=== PATIENT | male | born 1965 | race Caucasian/White ===

== ENCOUNTER 2025-08-11 00:13 | Inpatient (IN) | payer OTHER, SELFPAY ==
[2025-08-10 19:53] VITALS: BP 186/136
[2025-08-10 19:56] LABS: Glucose - Point of Care 250 mg/dl (70-99)
[2025-08-10 20:13] LABS: Venous Blood Gas B.E. 1.0 mmol/L (-4 to +4); Venous Blood Gas O2 Sat % 98.3 %
[2025-08-10 20:17] LABS: Hematocrit 47.3 % (39.0-52.0); Hemoglobin 17.1 g/dL (13.0-18.0); Mean Corp Hgb Conc. 36.2 g/dL (33.0-37.0); Mean Corpuscular Volume 86.8 fL (80.0-94.0); Nucleated Red Blood Cells % 0 % (-); Platelet Count 247 10^3/uL (130-400); Red Cell Dist. Width 11.9 % (11.5-14.5)
[2025-08-10 20:27] VITALS: BP 204/106
[2025-08-10 20:28] VITALS: BMI 37.9
[2025-08-10 20:39] LABS: Troponin I 0.026 ng/ml
--- NOTE | 2025-08-10 20:39 | ED.GENMED ---
History of Present Illness
<Trice Zavala PA-C - Last Filed: 08/11/25 00:13>
General
Chief Complaint: Dizziness
Source: patient
Exam Limitations: none
Time Seen by Provider: 08/10/25 20:14
History of Present Illness
History of Present Illness:
60yoM with a history of hypertension, hyperlipidemia, and type 2 diabetes presenting for evaluation of right sided uncoordination. Patient woke up this morning around 7:30 AM and noticed some dizziness which he describes as feeling woozy. He
denies any vertiginous symptoms. He was able to go on a walk and was feeling okay. When he returned from his walk, he sat down around 10:30 AM and noticed that his right leg seemed weak. It feels like he is having a hard time lifting the leg and
he feels like he is going to fall. He was also having some issues holding a cup with his right arm earlier. He has baseline neuropathy in his legs. He denies any headaches. His vision has been 'off' for the past few weeks. He lost his health
insurance about 1.5 years ago and has been off his blood pressure and diabetic medications since then.
Past History
<Trice Zavala PA-C - Last Filed: 08/11/25 00:13>
Past History
ED Past Medical History: Hypercholesterolemia and Other (Hypertension, recent umbilical hernia repair)
ED Past Surgical History: Other (removal of sweat glands l arm in early 20's)
Social History
Tobacco: Non-smoker
Personal:
Living: with family
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
Family History
Family History: Other (Hypertension, colon cancer)
Phy Exam
<Trice Zavala PA-C - Last Filed: 08/11/25 00:13>
General Physical Exam
General Presentation: well appearing and no apparent distress
General Skin: warm and dry
General Habitus: normal
General Mental: alert
ENT Exam
ENT Exam: normocephalic
Eye Exam
Eye Exam: PERRL, EOMI, conjunctiva normal and visual kay normal
Cardiovascular Exam
Cardiovascular Exam: regular rate/rhythm
Pulmonary Exam
Pulmonary Exam: lungs clear, no respiratory distress, no rales, no crackles, no rhonchi and no wheezing
Neurological Exam
Neurological Exam: alert, speech normal and other (Mild drift in RUE/RLE. Mild dysmetria noted with R finger to nose and heel to martinez. CN 2-12 intact. )
[place] Coma Scale
Eye Opening: Spontaneous
Verbal Response: Oriented
Motor Response: Obeys Commands
GCS Total Score: 15
Skin Exam
Skin Exam: normal color and warm/dry
Psychiatric Exam
Psychiatric Exam: normal mood/affect
<Davonte Martin DO - Last Filed: 08/10/25 22:17>
[place] Coma Scale
GCS Total Score: 15
Scores
<Trice Zavala PA-C - Last Filed: 08/11/25 00:13>
NIH Stroke Score
Level of Consciousness: 0 - Alert
LOC Questions: 0-Answers both correctly
LOC Commands: 0-Performs both correctly
Best Horizontal Gaze: 0-Normal
Visual Kay: 0=Normal, no visual loss
Facial Palsy: 0=Normal, symmetrical
Motor - Right Arm: 0=No drift 10 seconds
Motor - Left Arm: 0=No drift 10 seconds
Motor - Right Le-No drift 5 seconds
Motor - Left Le-No drift 5 seconds
Limb Ataxia: 2-Present in two limbs
Sensation: 0-Normal
Best Language: 0-No aphasia
Dysarthria: 0-Normal
Extinction and Inattention: 0-No abnormality
NIH Total Score:: 2
<Davonte Martin DO - Last Filed: 08/10/25 22:17>
NIH Stroke Score
NIH Total Score:: 2
Course
<Trice Zavala PA-C - Last Filed: 08/11/25 00:13>
Orders/Labs/Results
Orders:
Orders
08/10/25 19:56
Electrocardiogram (*1) Urgent
Reason for Study: Vertigo / Dizzy
08/10/25 19:57
EKG- Treatment ONCE
08/10/25 20:04
B-Hydroxybutyrate Urgent
Complete Blood Count/With Diff Urgent
Comprehensive Metabolic Panel Urgent
Lactic Acid Urgent
Troponin I Urgent
Venous Blood Gas Urgent
%Oxygen/Room Air: room air
08/10/25 21:23
CT Head & Neck Angio W/wo IV Urgent
Comment:
Reason For Exam: R sided weakness, dizziness
08/10/25 22:15
Labetalol HCl [Trandate] 20 mg IV NOW STA
08/10/25 23:20
Aspirin Chewable [Low Strength Aspirin] 324 mg PO NOW STA
08/11/25 00:02
Admit/Transfer Patient As Directed
Co-Sign Provider:
Level of Care: Inpatient admission
Assign to:: ICU
Physician / Group: Cecilia
Diagnosis: Hypertensive emergency
Reason for Hospitalization: hypertensive emergency, TIA/CVA
Expected length of stay greater than two midnights?: Yes
ELOS- Estimated Length of Stay in days: 2
I certify the patient meets the requirements for IP care: Yes
08/11/25 00:03
Code Status As Directed
Resuscitation Status: Full Code
08/11/25 00:15
Nicardipine 40 mg/200 ml [Cardene] 40 mg in 200 ml IV PER PROTOCOL
Initial dose in mg/hr, then titrate:: 2.5
Titrate to keep:: BP < 180/105 mmHg
Titrate by mg/hr:: 2.5 mg/hr
Frequency of titrations (minutes):: 5-15 minutes
Maximum dose in mg/hr:: 15
Begin to taper infusion when:: Remained at goal for 2hrs
Taper by mg/hr:: 2.5 mg/hr
Frequency of taper (minutes) if patient maintains goal:: every 15-30 minutes
Taper to off?: Yes
If infusion off & no longer maintaining goal:: Contact Provider
Abnormal Lab Results
08/10/25 08/10/25
19:54 20:04
MCH 31.4 H pg
(27.0-31.0)
VBG pO2 92 H mmHg
(30-50)
BUN 22 H mg/dl
(9-20)
Creatinine 1.4 H mg/dL
(0.7-1.3)
Glucose 244 H mg/dl
(70-99)
POC Glucose 250 H mg/dl
(70-99)
08/10/25 20:04
08/10/25 20:04
Vital Signs
Initial and Last Documented VS:
Initial Vital Signs
Temp Pulse Resp BP Pulse Ox
98.0 F 115 20 186/136 97
08/10/25 19:53 08/10/25 19:53 08/10/25 19:53 08/10/25 19:53 08/10/25 19:53
Last Documented Vital Signs
Temp Pulse Resp BP Pulse Ox
98.0 F 91 13 233/135 94
08/10/25 21:04 08/10/25 23:45 08/10/25 23:45 08/10/25 23:00 08/10/25 23:30
<Davonte Martin, DO - Last Filed: 08/10/25 22:17>
Orders/Labs/Results
Orders:
Orders
08/10/25 19:56
Electrocardiogram (*1) Urgent
Reason for Study: Vertigo / Dizzy
08/10/25 19:57
EKG- Treatment ONCE
08/10/25 20:04
B-Hydroxybutyrate Urgent
Complete Blood Count/With Diff Urgent
Comprehensive Metabolic Panel Urgent
Lactic Acid Urgent
Troponin I Urgent
Venous Blood Gas Urgent
%Oxygen/Room Air: room air
08/10/25 21:23
CT Head & Neck Angio W/wo IV Urgent
Comment:
Reason For Exam: R sided weakness, dizziness
08/10/25 22:15
Labetalol HCl [Trandate] 20 mg IV NOW STA
08/10/25 23:20
Aspirin Chewable [Low Strength Aspirin] 324 mg PO NOW STA
08/11/25 00:02
Admit/Transfer Patient As Directed
Co-Sign Provider:
Level of Care: Inpatient admission
Assign to:: ICU
Physician / Group: Cecilia
Diagnosis: Hypertensive emergency
Reason for Hospitalization: hypertensive emergency, TIA/CVA
Expected length of stay greater than two midnights?: Yes
ELOS- Estimated Length of Stay in days: 2
I certify the patient meets the requirements for IP care: Yes
08/11/25 00:03
Code Status As Directed
Resuscitation Status: Full Code
08/11/25 00:15
Nicardipine 40 mg/200 ml [Cardene] 40 mg in 200 ml IV PER PROTOCOL
Initial dose in mg/hr, then titrate:: 2.5
Titrate to keep:: BP < 180/105 mmHg
Titrate by mg/hr:: 2.5 mg/hr
Frequency of titrations (minutes):: 5-15 minutes
Maximum dose in mg/hr:: 15
Begin to taper infusion when:: Remained at goal for 2hrs
Taper by mg/hr:: 2.5 mg/hr
Frequency of taper (minutes) if patient maintains goal:: every 15-30 minutes
Taper to off?: Yes
If infusion off & no longer maintaining goal:: Contact Provider
Abnormal Lab Results
08/10/25 08/10/25
19:54 20:04
MCH 31.4 H pg
(27.0-31.0)
VBG pO2 92 H mmHg
(30-50)
BUN 22 H mg/dl
(9-20)
Creatinine 1.4 H mg/dL
(0.7-1.3)
Glucose 244 H mg/dl
(70-99)
POC Glucose 250 H mg/dl
(70-99)
08/10/25 20:04
08/10/25 20:04
Vital Signs
Initial and Last Documented VS:
Initial Vital Signs
Temp Pulse Resp BP Pulse Ox
98.0 F 115 20 186/136 97
08/10/25 19:53 08/10/25 19:53 08/10/25 19:53 08/10/25 19:53 08/10/25 19:53
Last Documented Vital Signs
Temp Pulse Resp BP Pulse Ox
98.0 F 91 13 233/135 94
08/10/25 21:04 08/10/25 23:45 08/10/25 23:45 08/10/25 23:00 08/10/25 23:30
Maribellt;Trice Zavala PA-C - Last Filed: 08/11/25 00:13>
MDM/Problems Addressed
Differential Diagnosis Includes:
60yoM presenting for dizziness and R sided incoordination/weakness that began this morning. Has been off all meds for >1.5 years including antihypertensives and diabetic meds. BP 186/136 on arrival. He is awake and alert on exam. He denies any
headaches. There is mild dysmetria and drift noted in the right upper and lower extremities. Differential diagnosis includes but is not limited to: CVA, TIA, hypertensive emergency, radiculopathy, peripheral neuropathy
Initial ED plan: Lab work initiated in triage. EKG shows normal sinus rhythm with nonspecific T wave changes. Will check CTA head/neck. Patient is out of the window for TNK.
<Trice Zavala PA-C - Last Filed: 08/11/25 00:13>
*Pulse Oximetry
SaO2: 96
Oxygen Mode of Delivery: Room air
Patient hypoxic: no
*EKG
Interpreted by ED Provider?: Yes
EKG Intrepretation Date: 08/10/25
Heart Rate: 95
Rate: normal
Rhythm: sinus
[place]: normal axis
Interval: normal interval
QRS Pattern: normal QRS
Ischemia: T-wave inversion (lateral leads)
<Davonte Martin DO - Last Filed: 08/10/25 22:17>
*Critical Care Note
Total Time (30-74mins, 75-104mins- exclusive of procedures): 32
comment:
Critical care statement: A total of 32 minutes of critical care time was provided for this patient. This includes management of unstable vital signs, evaluation of the patient at bedside, reviewing the patient's pertinent medical records, discussion
with consultants, review of old EKGs and review of pertinent medical records. This time with separate from time utilized to perform the aforementioned documented procedures
<Trice Zavala PA-C - Last Filed: 08/11/25 00:13>
Update Note
Update Note:
Labs reveal a creatinine of 1.4 up from 0.[address] is negative for hemorrhage and large vessel occlusion. There is a small focus adjacent to the left lateral ventricle which is possibly an age-indeterminate lacunar infarct. Aspirin ordered.
Again, patient is out of the window for TNK. He did receive a dose of 20 mg IV hydralazine for uncontrolled blood pressure. Patient admitted for further management.
ED Attending Note
<Trice Zavala PA-C - Last Filed: 08/11/25 00:13>
-
Portions of this chart may have been created with voice recognition software.� Occasional wrong word or��sound alike� substitutions may have occurred due to the inherent limitations of voice recognition software.
<Davonte Martin DO - Last Filed: 08/10/25 22:17>
ED Attending Note
Patient seen and examined by attending physician: Yes
ED Attending Note:
I have reviewed and agree with history plan by Trice Zavala PA-C. My exam revealed
Physical Exam
General: Hypertensive 230/140
Neck: supple. no meningeal signs. normal posterior pharynx
Heart: s1/s2 regular rate and rhythm, no murmur. equal radial
pulses.
HEENT: Pupils equal round reactive to light, EOMI
Lungs: no acute respiratory distress. clear bilaterally
Abdomen: normal bowel sounds. not tender. no CVAT
Neuro: alert and oriented. no focal neurological deficits cranial nerves II through XII intact slight drift in right leg and right arm
Skin: no rash
Psychiatric: well kept. interactive and cooperative
Extremities: no edema. no calf tenderness. negative homans. good distal pulses
IV labetalol ordered. Patient out of window for TNK. Await CT angiography results.. Admit to hospital
Discharge Plan
Departure
Patient Disposition: Admit
Date of Disposition: 08/10/25
Time of Disposition: 23:26
Presentation/result/management discussed w/ accepting MD/DO: Hospitalist
Discharge Problem:
Stroke-like symptoms
Prescriptions:
No Action
loratadine 10 MG tablet
10 mg PO DAILY
omeprazole magnesium [Prilosec OTC] 20 MG tablet,delayed release (DR/EC)
20 mg PO DAILY
fluconazole 150 MG tablet
150 mg PO DAILY Qty: 5 0RF
metformin 500 MG tablet extended release 24 hr
500 mg PO DAILY Qty: 14 1RF
hydrocodone-acetaminophen [Vicodin] 1 EACH tablet
1 ea PO Q6HPRN PRN (Reason: pain) Qty: 7 0RF
hydrocodone-acetaminophen 1 TABLET tablet
1 tab PO Q4HPRN PRN (Reason: severe pain) Qty: 8 0RF
penicillin V potassium 500 MG tablet
500 mg PO Q6 Qty: 39 0RF
penicillin V potassium 500 MG tablet
500 mg PO Q6 Qty: 28 0RF
hydrocodone-acetaminophen [Vicodin] 1 EACH tablet
1 ea PO Q4HPRN PRN (Reason: pain) Qty: 10 0RF
Referrals:
Rachel Solitario PA-C [Family Provider, Internal Medicine]
Interventions
Interventions:
*General Assessment Last Done: 08/10/25 19:53
*ED- Fall Risk Assessment Last Done: 08/10/25 20:47
*ED COVID-19 Vaccine History Last Done: 08/10/25 20:48
*ED Influenza Vaccine History Last Done: 08/10/25 20:48
ED- Neurological Assessment Last Done: 08/10/25 20:54
ED Swallowing Screen Last Done: 08/10/25 20:53
Discharge Date and Time
Print Language: SERBIAN
[2025-08-10 20:46] VITALS: BP 230/131
[2025-08-10 20:49] LABS: ALT (SGPT) 39 U/L (0-50); AST (SGOT) 40 U/L (17-59); Albumin 4.4 g/dl (3.5-5.0); Alkaline Phosphatase 73 U/L (38-126); Blood Urea Nitrogen 22 mg/dl (9-20); Calcium 9.4 mg/dl (8.4-10.2); Carbon Dioxide 25 mmol/L (22-30); Chloride 104 mmol/L (98-107); Estimated Creatinine Clearance 79 ml/min; Glucose 244 mg/dl (70-99); Potassium 4.5 mmol/L (3.5-5.1); Sodium 137 mmol/L (135-145); Total Protein 8.2 g/dl (6.3-8.2); eGFR 57.54
[2025-08-10 21:00] VITALS: BP 201/120
[2025-08-10 22:05] VITALS: BP 230/140
[2025-08-10] MEDS: TRANDATE 20 MG IV (22:18)
[2025-08-10 23:00] VITALS: BP 233/135
--- NOTE | 2025-08-10 23:34 | HPS.HSE ---
Family Physician
-
Family Physician: Rachel Solitario PA-C
Chief Complaint
-
Dizziness
History of Present Illness
This is a 60-year-old male with past medical history significant for whm-vxjrqiv-hznlpnyua diabetes, hypertension, hyperlipidemia, obesity we will reports that he has been off his medication for about a year presents to the emergency department with
onset of dizziness that started this a.m.
Patient reported that he thinks he was in digestive health when he went to bed last night. When he awoke this morning he tried to get is for the family out of the house and he noticed that he had some difficulty walking. He felt like he is right
lower extremity was clunky. He was misjudging placement of his leg he was also starting placement of his right hand and sometimes had difficulty grabbing or reaching for objects. He reports that he has had some blurry vision in the recent past and
he needed to have his eyes checked but this feels different from that. He reported that after day progressed his symptoms appear to get worse and then they have stabilized now with difficulty placing the right leg correctly and subsequent ataxia.
He also reports some mild perioral paresthesias. He denies any other focal deficits. Denies any headache nausea vomiting diarrhea or palpitations or chest pain.
Patient reported that his blood pressure has been running high at home in the 200s over 100. He has not taken his blood pressure medications for over 1 year whereas he was previously on lisinopril and hydrochlorothiazide. He also reports that he
has not been taking his antidiabetic or antilipid medications due to lack of insurance. He states he is now able to get them.
He denies any urinary symptoms.
In the emergency department he was afebrile, blood pressure was 230/140 with a pulse rate of 93 and was satting 98% on room air. ECG showed sinus rhythm at a rate of 95 with T wave inversions in the lateral leads. CT of the head and CT angio shows
no acute acute intracranial hemorrhage. Small localized focus of subtle diminished attenuation within the periventricular white matter adjacent to the posterior body left lateral ventricle. Possible mild chronic ischemic change versus age
indeterminant white matter lacunar infarct. Recommend follow-up MRI. CTA shows no large vessel occlusion dissection or aneurysm.
Medical History
Past Medical History
Past Medical History: Reports GERD, HTN, Hypercholesterolemia and NIDDM
Past Surgical History: Reports Orthopedic (Right upper extremity tendon repair) and Other (Umbilical hernia repair)
Social History
Tobacco: Non-smoker
Alcohol: Occasional
Drug: None
Living: With Family
Family History
Family History: Not pertinent
Allergies / Home Medications
Allergies reflects when Allergies were last updated in [facility].
Home Medications with original date entered in [facility]
Allergy/Medication List:
Allergies
Allergy/AdvReac Type Severity Reaction Status Date / Time
No Known Allergies Allergy Verified 08/10/25 19:52
Home Medications
hydrocodone 5 mg-acetaminophen 300 mg tablet (Vicodin) 1 ea PO Q4HPRN PRN pain #10 tabs 11/06/18
penicillin V potassium 500 mg tablet 500 mg PO Q6 #28 tabs 11/06/18
Review of Systems
-
Constitutional: Reports No Symptoms
EENT: Reports No Symptoms
Respiratory: Reports No Symptoms
Cardiac: Reports No Symptoms
Abdomen/GI: Reports No Symptoms
: Reports No Symptoms
Musculoskeletal: Reports No Symptoms
Skin: Reports No Symptoms
Neurological: Reports Dizzy and Weakness
Endocrine: Reports No Symptoms
Hematologic/Lymphatic: Reports No Symptoms
Psych: Reports No Symptoms
Physical Exam
Vital Signs
Vital Signs
Temp Pulse Resp BP Pulse Ox
98.0 F 93 19 230/140 97
08/10/25 21:04 08/10/25 22:18 08/10/25 22:05 08/10/25 22:18 08/10/25 22:05
Physical Exam
General: Well Developed, Well Nourished and No Apparent Distress
HEENT: NormoCephalic, Moist mucous membranes and Atraumatic
Respiratory: Clear
Cardiac: S1/S2 and Regular Rhythm; No Murmur or Rub
GI: Soft, Non Tender, Non Distended and Normal Bowel Sounds; No Organomegaly
Rectal: Deferred by Provider
Musculoskeletal: No Clubbing, No Cyanosis and No Edema
Skin: No Rash
Neuro: AO x 3, Nonfocal/grossly intact (subtle weakness of the dorsiflexion on the right foot), Cranial Nerves Intact and No Sensory Deficits; No Slurred Speech, Facial Droop or Tremors
Laboratory Results
-
08/10/25 20:04
08/10/25 20:04
Laboratory Results
Lactic Acid 1.1 mmol/L (0.7-2.0) 08/10/25 20:04
Total Bilirubin 0.9 mg/dl (0.2-1.3) 08/10/25 20:04
AST 40 U/L (17-59) 08/10/25 20:04
ALT 39 U/L (0-50) 08/10/25 20:04
Alkaline Phosphatase 73 U/L (38-126) 08/10/25 20:04
Troponin I 0.026 ng/ml 08/10/25 20:04
Data Reviewed
-
CT Scan: Report Reviewed by me
Medical Tests (Nuc Med, Echo, EKG etc): Image Personally Visualized and interpreted
Lab Data: Labs Reviewed by me
Old Records: Reviewed
Impression/Plan
-
IMPRESSION:
This is a 60-year-old with uncontrolled hypertension secondary to noncompliance with medications, hyperlipidemia, [id number]-hdazihnsp diabetes not currently on medical management presenting with acute onset of ataxia and subtle weakness of the
right lower extremity. Ataxia appears to be related to the right side as well. Suspect possible cerebellar infarct however CT scan seems to show possible age-indeterminate lacunar infarct on the left. He has uncontrolled blood pressure today 230s
over 130s in the ED.
PLAN:
Hypertensive emergency -patient with hypertensive emergency given elevated blood pressure with endorgan changes.
-Admit to ICU
-Will start on nicardipine drip, initial goal blood pressure of no less than 180 systolic, 90 diastolic
-Restart lisinopril/hctz in am
- Monitor neurovascular status
TIA CVA -possible hypertensive emergency etiology versus new stroke. Patient is out of window for TNK
-Neurochecks every 6 hours
-Speech and swallow eval
-Check lipid panel and A1c
-Statin low-dose statin
-Start aspirin 81 mg daily for now
-MRI in a.m.
-Neurology consult
Diabetes -previously on Trulicity and oral agent which patient is unable to recall
-Sliding scale insulin for now
-Glipizide twice daily
-Consider addition of linagliptin
-A1c as above
DVT progresses�SCDs for now
CODE STATUS�full code
[2025-08-10] MEDS: LOW STRENGTH ASPIRIN 324 MG PO (23:52)
[2025-08-11] VITALS (67 sets, daily range): BP systolic 127–254; BP diastolic 77–167; PULSE 125; BMI 36.7
[2025-08-11] MEDS: CARDENE 200 IV ×3 (00:21→16:45)
--- NOTE | 2025-08-11 01:30 | PTCARENOTE ---
Patient received from ED, AAOX3, NIH 3, ataxia noted in right arm and right leg, decreased sensation on right side of face. NSR on monitor, blood pressure as documented. Cardene gtt at 7.5 mg/hr, overall patient 'does not feel good', no edema.
Lungs clear, pulse ox 97% on room air. Abdomen obese with hypoactive bowel sounds. #18 g in LAC with Cardene gtt infusing as ordered
[2025-08-11 02:05] LABS: Glucose - Point of Care 227 mg/dl (70-99)
[2025-08-11] MEDS: NOVOLOG FLEXPEN 3 UNITS SC (03:41)
--- NOTE | 2025-08-11 04:30 | PTCARENOTE ---
Patient complaining of being 'hot', not feeling well, blood pressure 160s/80s, Cardene gtt decreased. No other changes in assessment
[2025-08-11 04:56] LABS: Hematocrit 44.7 % (39.0-52.0); Hemoglobin 16.1 g/dL (13.0-18.0); Mean Corp Hgb Conc. 36.0 g/dL (33.0-37.0); Mean Corpuscular Volume 88.9 fL (80.0-94.0); Platelet Count 233 10^3/uL (130-400); Red Cell Dist. Width 11.9 % (11.5-14.5)
[2025-08-11 05:03] LABS: INR 1.03; PT 13.8 Sec (11.4-14.6)
[2025-08-11 05:04] LABS: APTT 25.7 Sec (23.4-35.0)
[2025-08-11 05:17] LABS: Blood Urea Nitrogen 25 mg/dl (9-20); Calcium 9.3 mg/dl (8.4-10.2); Carbon Dioxide 23 mmol/L (22-30); Chloride 104 mmol/L (98-107); Estimated Creatinine Clearance 74 ml/min; Glucose 301 mg/dl (70-99); HDL Cholesterol 29 mg/dl; Magnesium 1.5 mg/dl (1.6-2.3); Potassium 4.5 mmol/L (3.5-5.1); Sodium 137 mmol/L (135-145); eGFR 52.97
[2025-08-11 06:00] LABS: LDL Cholesterol, Direct < 30 mg/dl
[2025-08-11 06:05] LABS: Hepatitis C Antibody Negative (Negative)
[2025-08-11] MEDS: MAGNESIUM SULFATE 50 IV ×2 (06:08→10:09)
--- NOTE | 2025-08-11 07:12 | CON.INTV ---
Consultation
Consultation Request
Date/Time Consultation Requested: 08/11/2025
Date/Time Consultation Performed: 08/11/2025
Medical History
-
Chief Complaint: Weakness
History of Present Illness:
Patient is a 60-year-old gentleman with history of hypertension, hyperlipidemia, diabetes and obesity who reportedly stopped taking his medication since about a year and presented to emergency room with rapid onset of dizziness. Patient felt as if
his coordination was off and symptoms are suggestive of ataxia. Patient also reported perioral paresthesias. No reported nausea, headache or vomiting. Reportedly known history of high blood pressure with systolic running above 200 and has been
off medication for close to a year. In the emergency room patient's blood pressure was severely elevated at 230 x 140. He was saturating well on room air. CT angio of the head was not suggestive of any acute intracranial hemorrhage or an acute
stroke. There was suggestion of possible old stroke on the CT scan. Patient was not felt to be a candidate for TNK since he was out of window in terms of time since onset of his symptoms. In view of hypertensive emergency he was started on
nicardipine drip and was admitted to the ICU. Director Of Recruiting consultation was requested for further input.
Past Medical History
Past Medical History: Reports GERD, HTN, Hypercholesterolemia and NIDDM
Past Surgical History: Reports Orthopedic (Right upper extremity tendon repair) and Other (Umbilical hernia repair)
Social History
Tobacco: Non-smoker
Alcohol: Occasional
Drug: None
Living: With Family
Family History
Family History: Not pertinent
Allergies / Home Medications
Allergies / Home Medications
Allergies
Allergy/AdvReac Type Severity Reaction Status Date / Time
No Known Allergies Allergy Verified 08/10/25 19:52
Home Medications
�Medication �Instructions �Recorded �Confirmed �Last Taken �Type
loratadine 10 mg tablet 10 mg PO DAILY 08/13/09 03/09/16 03/09/16 History
omeprazole magnesium 20 mg 20 mg PO DAILY 08/13/09 03/09/16 03/09/16 History
tablet,delayed release (Prilosec
OTC)
fluconazole 150 mg tablet 150 mg PO DAILY #5 tabs 03/09/16 Unknown Rx
hydrocodone 5 mg-acetaminophen 300 1 ea PO Q6HPRN PRN pain #7 tabs 03/09/16 Unknown Rx
mg tablet (Vicodin)
metformin 500 mg tablet,extended 500 mg PO DAILY #14 tabs 03/09/16 Unknown Rx
release 24 hr
hydrocodone 5 mg-acetaminophen 325 1 tab PO Q4HPRN PRN severe pain #8 07/27/17 Unknown Rx
mg tablet tabs
penicillin V potassium 500 mg 500 mg PO Q6 #39 tabs 07/27/17 Unknown Rx
tablet
hydrocodone 5 mg-acetaminophen 300 1 ea PO Q4HPRN PRN pain #10 tabs 11/06/18 Unknown Rx
mg tablet (Vicodin)
penicillin V potassium 500 mg 500 mg PO Q6 #28 tabs 11/06/18 Unknown Rx
tablet
Review of Systems
-
Hematologic/Lymphatic: Other (All 14 systems reviewed and negative except as stated above in the history of present illness.)
Vitals / Labs / Diagnostic Testing
Vital Signs
Temp Pulse Resp BP Pulse Ox
97.8 F 90 15 145/87 97
08/11/25 01:56 08/11/25 06:45 08/11/25 06:45 08/11/25 06:45 08/11/25 02:10
Lab Data
08/11/25 04:40
08/11/25 04:40
Laboratory Results
08/11/25
04:40
PT 13.8
INR 1.03
APTT 25.7
Diagnostic Testing:
Physical Exam
-
HEENT: Normocephalic
Cardiovascular: S1/S2
Respiratory: Clear
GI: Soft and Non Distended
Neurology: Awake, Alert and Oriented
Skin: Warm
General: Comfortable
Assessment
-
#1. Hypertensive emergency
- Severely elevated blood pressure with strokelike symptoms
- Continue monitoring in ICU, patient was started on nicardipine drip
- Initial blood pressure was 230 systolic, considering concern for stroke will not start to get lowering below 180 at least the first 24 hours. Also patient chronically hypertensive with blood pressures running around 200 systolic at home
#2. Weakness/Ataxia with concern for acute stroke.
- CTA without evidence of acute bleed
- Continue neurochecks, patient not candidate of TNK due to being out of time window since onset of symptoms
- Await MRI for further evaluation
- Neurology service on case
#3. DM
- Elevated triglycerides noted
- Start Lantus 15 units nightly and Aspart 5 units tid-ac, SSI in addition
Other medical diagnoses:
- Mediastinal Lymphadenopathy and pulmonary nodules. needs dedicated CT Chest for further evaluation, also outpatient Pulmonary follow up. Information added to discharge section and patient counselled regarding need for follow up. CT chest in AM.
- HLD. Statins initiated.
DVT prophylaxis. Initiate heparin subcu, 5000 units every 8 hours.
Critical Care time 62 mins -- The patient is admitted for acute critical illness for the treatment of vital organ failure and/or prevention of further life-threatening conditions. Total care includes time spent in review of history, physical exam,
medications, hemodynamic/ventilator parameters, laboratory data, imaging and discussion with house staff, pharmacy, respiratory therapy, swing tender, and nursing.
Data:
CTA Head/Neck 07/2025: No acute intracranial hemorrhage.
Small localized focus of subtle diminished attenuation within the periventricular white matter adjacent to the posterior body left lateral ventricle. Possible mild chronic ischemic change versus age indeterminant white matter lacunar infarct.
Recommend follow-up MRI.
Cervical and intracranial major regional vasculature appears patent without evidence for hemodynamically significant stenosis or occlusion. Normal variant hypoplasia of the left anterior cerebral artery A1 segment.
No [place] of [place] region aneurysm or stenosis.
Incidental superior mediastinal adenopathy; possibly infectious, inflammatory, or neoplasm, such as lymphoma. There are small patchy nodular opacities in the left lung apex measuring up to 6.5 mm. Initial step for further evaluation recommended with
follow-up nonemergent chest CT
[2025-08-11] MEDS: NOVOLOG FLEXPEN-MODERATE RESISTANCE 7 UNITS SC ×2 (07:49→12:19)
[2025-08-11] MEDS: GLUCOTROL 2.5 MG PO (07:50)
[2025-08-11] MEDS: MIRALAX 17 GRAMS PO (07:50)
[2025-08-11] MEDS: LOW STRENGTH ASPIRIN 81 MG PO (07:51)
[2025-08-11 08:00] LABS: Glucose - Point of Care 311 mg/dl (70-99)
--- NOTE | 2025-08-11 08:40 | CON.NEURO ---
Addendum entered and electronically signed by Kaleb Galindo MD 08/11/25 11:27:
Studies reviewed.
I have personally examined the patient. I reviewed and agree with the CONTENT ANALYST's Note.
My addenda:
Awake, alert, interactive. No acute distress.
Speech intact.
Follows 2-step requests w/o difficulty. No tremor.
Extra-ocular movements grossly intact.
Facial movements full and symmetric. Hearing intact to normal conversational volume.
Normal UE movements with exception of ataxic movements in the right upper and lower extremities of moderate to severe amplitude.
Neck: full ROM.
Chest: no dyspnea
Heart: no JVD
Ext: (-) Clubbing, (-) Cyanosis, (-) Edema
IMPRESSIONS/RECOMMENDATIONS:
Abrupt onset of right hemibody ataxia
Most likely secondary to acute ischemic stroke as suggested by the left centrum semiovale hypodense lesion demonstrated on CAT scan of the head
Provide aspirin and clopidogrel for total 21 days then aspirin alone
Provide cholesterol-lowering agent
Rehabilitation evaluation and treatment
Goal of near normotension in the first 24 hours then normotension
Eventual follow-up of left apical lung lesion
D/W patient / nursing
All questions answered.
Will continue to follow patient.
Original Note:
Documented by User: Christen Joe NP 08/11/25 10:26
Neuro Assessment/Plan
Assessment
This is a 60-year-old male with past medical history significant for tqm-zmdzkdd-pilfsxwem diabetes, hypertension, hyperlipidemia, obesity presenting to [facility] on 08/10/2025 for evaluation of right sided ataxia and dizziness.
CTA head and neck:
No acute intracranial hemorrhage.
Small localized focus of subtle diminished attenuation within the periventricular white matter adjacent to the posterior body left lateral ventricle. Possible mild chronic ischemic change versus age indeterminant white matter lacunar infarct.
Recommend follow-up MRI.
Cervical and intracranial major regional vasculature appears patent without evidence for hemodynamically significant stenosis or occlusion. Normal variant hypoplasia of the left anterior cerebral artery A1 segment.
No [place] of [place] region aneurysm or stenosis.
Labs: Cholesterol 249, LDL<30, Hbg A1C 9.0
Impression: abrupt onset of right sided ataxia with possible ischemic infarct on recent head CT
Plan
-check MRI brain without contrast to evaluate for stroke
-BP goal is normotension.
-start ASA 81mg and clopidogrel 75 mg daily for 21 days followed by monotherapy with aspirin
-check hemoglobin A1C. Goal is normoglycemia.
-LDL <30 with goal <70, continue atorvastatin 40 mg nightly
-PT/OT evaluations
-DVT prophylaxis
-continue neurochecks and NIHSS per unit guidelines
-stroke education material to be provided
All questions encouraged and answered, plan of care discussed with Dr. Galindo and patient
Consultation
Order
Date of Consultation: 08/11/25
Requesting Provider: hospitalist
Reason for Consult: right sided weakness and sensory changes
Subjective/Objective
Subjective Data
Date of Service: August 11, 2025
60-year-old male with uncontrolled hypertension secondary to noncompliance with medications, hyperlipidemia, kpw-lcbmvde-pdzjzlpdm diabetes not currently on medical management presented to [facility] on 08/10/2025 with acute onset of ataxia and subtle
weakness of the right side of his body. Patient reported that he thinks he was in his normal state of health when he went to bed the night prior to admission. When he awoke yesterday morning he noticed that he had some difficulty walking. He felt
like he is right lower extremity was clunky. He was have incoordination of his right leg and hand. He reports that he has had some blurry vision in the recent past and he needed to have his eyes checked but this feels different from that. He also
reports some mild perioral paresthesias. He denies any other focal deficits. Denies any headache, palpitations or chest pain. He denies issues with speech or swallow, bowel/bladder. Patient reported that his blood pressure has been running high at
home in the 200s over 100. He has not taken his blood pressure medications for over 1 year whereas he was previously on lisinopril and hydrochlorothiazide. He also reports that he has not been taking his antidiabetic or antilipid medications due
to lack of insurance. He states he is now able to get them. In the emergency department he was afebrile, blood pressure was 230/140 with a pulse rate of 93 and was satting 98% on room air. ECG showed sinus rhythm at a rate of 95 with T wave
inversions in the lateral leads. CT of the head and CT angio shows no acute acute intracranial hemorrhage. Small localized focus of subtle diminished attenuation within the periventricular white matter adjacent to the posterior body left lateral
ventricle. Possible mild chronic ischemic change versus age indeterminant white matter lacunar infarct. He did not receive TNK since he was out of the window. His current NIHSS is 3 for ataxia to RUE/RLE and RUE drift.
Objective Data
Vital Signs
Temp Pulse Resp BP Pulse Ox
97.7 F 90 15 145/87 97
08/11/25 08:25 08/11/25 06:45 08/11/25 06:45 08/11/25 06:45 08/11/25 02:10
Lab Results
08/11/25 04:40
08/11/25 04:40
PT 13.8 Sec (11.4-14.6) 08/11/25 04:40
INR 1.03 08/11/25 04:40
APTT 25.7 Sec (23.4-35.0) 08/11/25 04:40
Sodium 137 mmol/L (135-145) 08/11/25 04:40
Potassium 4.5 mmol/L (3.5-5.1) 08/11/25 04:40
BUN 25 mg/dl (9-20) H 08/11/25 04:40
Glucose 301 mg/dl (70-99) H 08/11/25 04:40
Calcium 9.3 mg/dl (8.4-10.2) 08/11/25 04:40
LDL Cholesterol Direct < 30 mg/dl 08/11/25 04:40
LDL Cholesterol, Calc mg/dl 08/11/25 04:40
Patient Allergies
No Known Allergies Allergy (Verified 08/10/25 19:52)
CVA Assessment
Onset of Stroke Symptoms
Onset of symptoms known: Yes
Date of onset of symptoms: 08/10/25
Time of onset of symptoms: 07:30
Time pt last seen normal is known: No
NIH Stroke Score
Level of Consciousness: 0 - Alert
LOC Questions: 0-Answers both correctly
LOC Commands: 0-Performs both correctly
Best Horizontal Gaze: 0-Normal
Visual Kay: 0=Normal, no visual loss
Facial Palsy: 0=Normal, symmetrical
Motor - Right Arm: 1=Drift < 10 seconds
Motor - Left Arm: 0=No drift 10 seconds
Motor - Right Le-No drift 5 seconds
Motor - Left Le-No drift 5 seconds
Limb Ataxia: 2-Present in two limbs
Sensation: 0-Normal
Best Language: 0-No aphasia
Dysarthria: 0-Normal
Extinction and Inattention: 0-No abnormality
NIH Total Score:: 3
Tenecteplase Contraindications
Inclusion and Exclusion criteria reviewed: Yes
Reasons for NON-Tx with Thrombolytics ABSOLUTE Exclusions: Time-out of window
IAT Contraindications: >6 hrs from onset/last seen normal and NIHSS < 6
Modified Padmini Score (MRS)
-
Modified [place] Scale (mRS): No significant disability. Able to carry out usual activities.
Score: 1
Physical Exam
-
General: Comfortable and Appears Stated Age
Eyes: No Ptosis and PERRLA
HEENT: Normocephalic, Atraumatic and Anicteric
Neck: Full Range of Motion
Respiratory: No Dyspnea
Cardiac: No JVD
GI: Non-distended
Skin: Unremarkable
Extremities: No Clubbing, No Cyanosis and No Edema
Psych: Unremarkable
Extended Neurological Exam
Mood & Affect: Mood Unremarkable
Attention Span & Concentration: Awake, Alert, Interactive and No Difficulty with 2 Step Request
Memory: Unremarkable
Tremor: Hand Tremor Absent and Head Tremor Absent
Speech: Quality Unremarkable, Quantity Unremarkable and Rate of Production Unremarkable
Cranial Nerve II: Left Eye: Visual Kay Intact
Cranial Nerve II: Right Eye: Visual Kay Intact
Cranial Nerves III, IV, : Extraocular Movement: Extraocular Movement Full in all Directions
Cranial Nerve VII: Facial Symmetry: Normal Facial Symmetry
Cranial Nerve VIII: Hearing: Unremarkable Hearing to Normal Conversational Volume
Cranial Nerves IX, X: Palate Movement: Palate Elevation Symmetric
Cranial Nerve XI: Shoulder Shrug: Unremarkable
Muscle Strength, Overall: Full Throughout
Pronator Drift: Drift in Right Upper Extremity and No Drift in Lower Extremities
Deep Tendon Reflexes: Absent Throughout
Touch Sensation: Unremarkable and Double Simultaneous Stimulation Unremarkable
Coordination: Other (ataxia to RUE/RLE)
Data Reviewed
-
CT-A: Report Reviewed and Image Reviewed
CT Head: Report Reviewed and Image Reviewed
MRI Head: Ordered
Medical Test Reports: Report Reviewed
Labs: Report Reviewed
Lipid Profile: Report Reviewed
HgbA1C: Report Reviewed
Reviewed with: Physician, Nurse and Patient
Old Records: Summarized
Medications
-
Active Medications
Generic Name Dose Route Start Last Admin
Trade Name Freq PRN Reason Stop Dose Admin
Acetaminophen 650 mg 08/11/25 01:55
Acetaminophen 650 Mg Rectal Suppository RECTAL 09/08/25 01:54
Q4HPRN PRN
AYERS, mild pain, or temp >100.4F
Acetaminophen 650 mg 08/11/25 01:55
Acetaminophen 325 Mg Tablet PO 09/08/25 01:54
Q4HPRN PRN
AYERS, mild pain, or temp >100.4F
Aspirin 81 mg 08/11/25 08:00 08/11/25 07:51
Aspirin 81 Mg Chewable Tablet PO 09/08/25 07:59 81 mg
DAILY JOEL Administration
Atorvastatin Calcium 40 mg 08/11/25 18:00
Atorvastatin (Lipitor) 40 Mg Tablet PO 09/08/25 17:59
QPM JOEL
Clopidogrel Bisulfate 75 mg 08/11/25 08:00
Clopidogrel 75 Mg Tablet PO 09/08/25 07:59
DAILY JOEL
Glipizide 2.5 mg 08/11/25 08:00 08/11/25 07:50
Glipizide 5 Mg Regular Release Tablet PO 09/08/25 07:59 2.5 mg
BID@0800,1700 JOEL Administration
Nicardipine/Sodium Chloride 40 mg in 200 mls @ 0 mls/hr 08/11/25 01:55 08/11/25 04:44
Cardene IV 200 mls
PER PROTOCOL JOEL Administration
Protocol
Per Protocol
Insulin Aspart 0 units 08/11/25 07:30 08/11/25 07:49
Insulin Aspart Moderate Resistance 300 Units/3 Ml Pen.Injctr SC 09/08/25 07:29 7 units
AC JOEL Administration
Protocol
Lisinopril 5 mg 08/11/25 08:00
Lisinopril 5 Mg Tablet PO 09/08/25 07:59
On Hold: 08/11/25 08:00 DAILY JOEL
Polyethylene Glycol 17 grams 08/11/25 08:00 08/11/25 07:50
Polyethylene Glycol Powder 17 Grams Packet PO 09/08/25 07:59 17 grams
DAILY JOEL Administration
Sodium Chloride 0 flush 08/11/25 03:00
Sodium Chloride 0.9% (Flush) Syringe IV 09/08/25 02:59
PER PROTOCOL JOEL
Home Medications
�Medication �Instructions �Recorded
No Meds [No Current Medications] 08/11/25
Past History
Past History
ED Past Medical History: Hypercholesterolemia and Other (Hypertension, recent umbilical hernia repair)
ED Past Surgical History: Other (removal of sweat glands l arm in early s)
Family/Social History
Tobacco: Non-smoker
Personal:
Living: with family
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
Family History: Other (Hypertension, colon cancer)

Documented by User: Kaleb Galindo MD 08/11/25 11:24
CVA Assessment
NIH Stroke Score
NIH Total Score:: 3
Modified Padmini Score (MRS)
-
Score: 1
--- NOTE | 2025-08-11 08:47 | W.PN.HOSP.TC ---
Today's Communication/Plan
-
Continue with aspirin and statin for now. Check MRI of the brain.
Hold IV nicardipine drip and follow blood pressure closely in ICU.
Assessment / Plan
Assessment / Plan
IMPRESSION:
This is a 60-year-old with uncontrolled hypertension secondary to noncompliance with medications, hyperlipidemia, qyi-htqjgly-rqlhxxoot diabetes not currently on medical management presenting with acute onset of ataxia and subtle weakness of the
right side of his body. Ataxia appears to be related to the right side as well. Suspect possible cerebellar infarct however CT scan seems to show possible age-indeterminate lacunar infarct on the left. He has uncontrolled blood pressure today
230s over 130s in the ED.
PLAN:
Hypertensive emergency -patient with hypertensive emergency given elevated blood pressure with endorgan changes and neurological symptom.
-Admitted to ICU
- Was started on nicardipine drip. Aim to bring down the blood pressure by 25-35%% in the past 24 hours but with concern of stroke aim to tx if only >180/110. Systolics in 140s. DC nicardipine and follow.
- Will restart with lisinopril depending on blood pressure response. Hold hydrochlorothiazide. If starting on lisinopril will continue to follow creatinine closely. Check urinalysis for any albuminuria.
- Monitor neurovascular status
TIA/ CVA -possible hypertensive emergency etiology versus new stroke. Patient is out of window for TNK
-Neurochecks every 6 hours
-Speech and swallow eval
-Check lipid panel and A1c
-Statin low-dose statin
-Started aspirin 81 mg daily for now
-MRI today
-Neurology consult
Diabetes -previously on Trulicity and oral agent metformin
-Sliding scale insulin for now
-A1c as above
- Restart metformin once evaluation is complete. Depending on hemoglobin A1c resume Trulicity. Patient unfortunately has no insurance at the current time.
Abnormal EKG
Patient without any symptoms of angina. He has T wave changes now inversions compared to nonspecific changes in the past and anterior lateral leads. Check another EKG. Unclear if related to uncontrolled hypertension.
Troponins are negative.
Abnormal creatinine-unclear if acute or chronic. No recent baseline. Continue to follow. No acidosis or hyperkalemia.
Hypomagnesemia-replete
DVT progresses�SCDs for now
CODE STATUS�full code
Dispo ICU
Discussed with DUAL HOSE CEMENTER
Total time spent on today's encounter was 52 minutes which included time spent in counseling the patient/family regarding diagnosis and treatment plan as listed above, goals of care, and symptom management. Case was discussed with nursing staff,
specialists, and care coordinators/case management. All labs and imaging personally reviewed by me. Remainder the time spent in detailed review of previous records, lab data, imaging, and other medical provider documentation.
Anticipated Discharge: > 48 hours
Subjective/Interval History
-
Date of Service: August 11, 2025
Patient still feeling weak on the right arm and the right leg . he also feels poor coordination with the right arm. Left side is okay. It all started yesterday in the morning when he took his dog for walk-he felt unsteady and dizzy and that is
when he noticed his right side was not coordinating well. He also felt vision was bit blurry but okay now. He felt right side was weak as well. No prior history of strokes or TIA.
Longstanding history of hypertension and was taking lisinopril and nothing hydrochlorothiazide.
He also is known diabetic and was taking metformin 2 tablets twice a day.
7 months ago he stopped all his medication. He lost good amount of weight from 300 pounds to 260s and was feeling good. He was going to the gym with the kids for exercise. So he stopped taking the medication. Plus also he lost the job and
insurance. Says other reason to stop the blood pressure was 1 of it was making him nauseous.
Denies any chest pain, palpitation or shortness of breath.
Objective Data
-
Labs:
Laboratory Results
08/10/25 08/11/25
20:04 04:40
WBC 10.5
Hgb 16.1
Hct 44.7
Plt Count 233
PT 13.8
INR 1.03
APTT 25.7
Sodium 137 137
Potassium 4.5 4.5
Chloride 104 104
Carbon Dioxide 25 23
BUN 22 H 25 H
Creatinine 1.4 H 1.5 H
Glucose 244 H 301 H
Calcium 9.4 9.3
Total Bilirubin 0.9
AST 40
ALT 39
Alkaline Phosphatase 73
Vital Signs:
Vital Signs
Temp Pulse Resp BP Pulse Ox
97.7 F 90 15 145/87 97
08/11/25 08:25 08/11/25 06:45 08/11/25 06:45 08/11/25 06:45 08/11/25 02:10
I&O
08/10/25 08/11/25 08/12/25
06:59 06:59 06:59
Intake Total 187.5 / 187.5
Output Total 500 / 500
Balance -312.5 / -312.5
Physical Exam
-
General: Comfortable
Respiratory: Clear to Auscultation and Non Labored Respirations; Negative Accessory Resp Muscle Use
Cardiac: Regular Rhythm, S1/S2 and Tachycardic
GI: Soft
Neuro: AO x 3; Negative No Motor Deficits (Right upper extremity 4+/5, pronator drift noted; right lower extremity 4+/5. Left side 5/5), Tremors, Slurred Speech or Facial Droop
Psych: Calm; Negative Confused or Agitated
Data Reviewed
-
CT Scan: Report Reviewed by me (CT head and CTA head and neck)
Medical Tests (Nuc Med, Echo etc): Image personally visualized and interpreted (EKG from admission from 2018 noted. T waves are inverted in the anterior lateral leads compared to before)
Labs: Labs Reviewed by me
[2025-08-11 09:00] LABS: Glycohemoglobin (HgbA1c) 9.0 % (4.0-5.6)
[2025-08-11] MEDS: PLAVIX 75 MG PO (10:10)
[2025-08-11] MEDS: HEPARIN 5000 UNITS SC ×3 (10:10→23:56)
[2025-08-11] MEDS: COMPAZINE 10 MG IV (10:17)
--- NOTE | 2025-08-11 11:06 | PTCARENOTE ---
pt awake and alert , anxious from recent events , he is on Cardene gtt for hypertension goal SBP < 180 currently at 5mg , ST on monitor , room air sat 96% , his NIHSS 4 , deficits are slight R sided facial droop , sensation loss on right side of
face, limb ataxia with both right arm and right leg , needs assistance to ambulate with wheeled walker , pt and children at bedside and updated on current condition and plan of care , plan for MRI , Plavix and Aspirin added , diabetic MARINE SCIENTIST
consulted for high blood glucose in 300s , pt co nausea and medicated with Compazine , Dr Galindo and Chandrakant spoke to pt re condition and plan of care
--- NOTE | 2025-08-11 11:09 | CM ---
Initial assessment completed with patient and who live in a 2 story home with no basement, B/B on 1st, 2 steps to enter. SHIPPING AND RECEIVING WEIGHER patient was independent in ADL's and ambulation, drove. No DME in the home. No in-home services. Patient has been out
of work for the past 1.5 years. 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 He has had many phone and in person job interviews. He no longer has health insurance. reports that they had Medicaid in the past but when attempted to recertify
they were denied. Patient had stopped taking his DM and HTN medications. AD literature provided. [facility] phone number and explanation of services provided. Referral to [facility] completed. No VA benefits. No HC-POA. No psychiatric
hospitalizations. Does have [facility] but patient says he has not been to the in over 2 years. Pharmacy is [facility] on [address] in [place]. Discharge POC: TBD.
--- NOTE | 2025-08-11 12:28 | PN.DE.MGMTRT ---
Insulin Management
- -
08/11/2025 Diabetes Management Consult
Patient admitted 08/10 with c/o dizziness, found to have hypertensive crisis, BP as high as 233/135, CVA. PMH HTN, HLD, diabetes, GERD. Was taking no diabetes meds for 1 1/2 years due to no insurance A1C on admission 9%, cr 1.5, eGFR 52.97.
Patient is awake alert and oriented, able to discuss diabetes care. and children at bedside, very supportive. States about 5 years ago had an A1C of 12%, was on trulicity and metformin and A1C was down to 7%. Lost insurance about 1 1/2 years
ago and stopped all medications. Patient has R sided weakness.
Discussed with patient importance of glucose control and that insulin will be required at this time.
Glucose yesterday 250, fasting today 301. Will increase AC novolog to 7 units with moderate corrective, and give 12 units lantus now one time dose. Will start 20 units lantus @ [facility].
Will have Diabetes Nurse Educator instruct on monitor and insulin administration . Due to cost recommended Reli-On meter temporarily (patient is applying for disability/medicaid which should cover meter and insulin.
Discussed with nurse
Will follow
Diabetes History
- -
Type of Diabetes: 2 requiring insulin
Pre-Admission Diabetes Regimen
08/10/25 08/11/25
20:04 04:40
Creatinine 1.4 H 1.5 H
Lab Results
Hemoglobin A1c 9.0 % (4.0-5.6) H 08/11/25 04:40
Insulin Pump Settings
IP Diabetes Regimen
08/10/25 08/10/25 08/11/25
19:54 20:04 01:53
Glucose 244 H
POC Glucose 250 H 227 H
08/11/25 08/11/25
04:40 07:48
Glucose 301 H
POC Glucose 311 H
Meal type: Breakfast
Amount consumed: 90%
Patient Education
[2025-08-11 12:29] LABS: Glucose - Point of Care 347 mg/dl (70-99)
--- NOTE | 2025-08-11 13:08 | PTOTSP ---
Speech Therapy Evaluation:
Pt with acute risk factor for dysphagia including concern for acute CVA. Mild oral impairments at bedside. No overt s/sx of aspiration or signs concerning for pharyngeal dysphagia at this time given CXR without pneumonia, pt on room air, WBC WNL,
and pt without dysphagia hx.
Recommend:
1. Continue regular solids and thin liquids
2. Medications as tolerated
3. General aspiration and reflux precautions
4. HOSPITAL MEDICINE DIRECTOR to follow to monitor tolerance of diet, provide education and training in aspiration/reflux precautions, and to determine if pt would benefit from additional language/cognitive assessments pending MRI
[2025-08-11] MEDS: LANTUS 0.12 UNITS SC (13:09)
[2025-08-11] MEDS: NOVOLOG FLEXPEN 7 UNITS SC ×2 (13:11→17:58)
--- NOTE | 2025-08-11 13:15 | PTCARENOTE ---
oob in chair for 4 hours , evaluated by PT and OT , following recommendations from diabetic SHOW CARD LETTERER , blood glucose 347 at 1200 , case management assisting patient with home needs , continues to await for MRI
--- NOTE | 2025-08-11 15:05 | PTCARENOTE ---
08/11/2025 DIABETES EDUCATION CONSULT
I met with patient and his to review diabetes management. He is currently inpatient with a TIA/CVA and has R. sided deficits in his arm and hand.
He has been treated for T2D in the past, stopped taking meds over a year ago and has not seen PCP Rachel Solitario in 2 years. SW is working on insurance coverage for the next 12 months.
I educated on physiology of T2D, organ damage, managing with medications, monitoring BG, nutrition, activity, sleep and managing stress. I reinforced signs of hyperglycemia, hypoglycemia and hypoglycemia protocol; BS parameters and recommended HbA1c
goals, glucometer and CGM instructions, glucose tracker, medic alert bracelet and outpatient DSME program. Written material provided.
I provided patient with a [employer] glucometer sample kit. Provided verbal instructions on proper blood sugar testing technique, and demonstration with his spouse's participation. Referred them to [facility] for [email or web address] glucometer, test
strips, and lancets; asked them to bring in to the hospital and I am happy to review how to check glucose with this device.
I educated and demonstrated on insulin injection technique, timing, and storage. Discussed long and short acting insulin; onset/peak/duration, and encouraged her to administer his own injections with RN supervision while admitted. Discussed normal
target glucose ranges and a monitoring schedule 15 minutes before each meal when prescribed Novolog, and before bedtime.
Encouraged patient to follow up with his PCP for post d/c appointment and to monitor medication and blood glucose levels. Provided list of endocrinologists if desired, to contact insurance company to verify in network status. Patient verbalized
understanding.
[2025-08-11] MEDS: ATIVAN 1 MG PO (16:35)
--- NOTE | 2025-08-11 16:43 | CARDSERVLU ---
Echocardiogram with Lumason completed after protocol screening completed. Allergies verified.
Patent IV site: _LAC____
IV site flushed with 0.9% NaCl pre and post administration.
Diluted bolus method utilized to enhance visualization of ventricular guidry.
Total volume given: _6___ mL
Patient tolerated all procedures well without complications.
[2025-08-11] MEDS: NOVOLOG FLEXPEN-MODERATE RESISTANCE 3 UNITS SC (17:58)
[2025-08-11] MEDS: LIPITOR 40 MG PO (17:59)
[2025-08-11 18:08] LABS: Glucose - Point of Care 239 mg/dl (70-99)
[2025-08-11 18:27] LABS: Urine Character Clear (Clear)
--- NOTE | 2025-08-11 18:29 | PTCARENOTE ---
MRI completed , continues on Cardene gtt with goal a SBP < 180
[2025-08-11 18:37] LABS: Urine Red Blood Cell 0-2 /HPF (0-2); Urine Squamous Cell 0-2 /LPF (Few); Urine White Cell 0-2 /HPF (0-5)
--- NOTE | 2025-08-11 20:00 | PTCARENOTE ---
on assessment pt AAOx3, denies pain and SOB at this time, NIH 4 with marino RN, RA, ST on the monitor, remains on Cardene gtt per orders, diabetic diet, uses urinal, call dejesus in reach
[2025-08-11] MEDS: LANTUS 0.2 UNITS SC (21:17)
[2025-08-11 21:20] LABS: Glucose - Point of Care 271 mg/dl (70-99)
[2025-08-12] VITALS (29 sets, daily range): BP systolic 114–175; BP diastolic 64–134; PULSE 134; BMI 37.1
[2025-08-12] MEDS: CARDENE 200 IV
--- NOTE | 2025-08-12 00:17 | PTCARENOTE ---
no changes from prior assessment, call dejesus in reach
[2025-08-12] MEDS: MELATONIN 10 MG PO (01:02)
[2025-08-12 04:26] LABS: Hematocrit 42.7 % (39.0-52.0); Hemoglobin 15.3 g/dL (13.0-18.0); Mean Corp Hgb Conc. 35.8 g/dL (33.0-37.0); Mean Corpuscular Volume 89.3 fL (80.0-94.0); Platelet Count 245 10^3/uL (130-400); Red Cell Dist. Width 11.7 % (11.5-14.5)
[2025-08-12 05:36] LABS: Blood Urea Nitrogen 28 mg/dl (9-20); Calcium 9.2 mg/dl (8.4-10.2); Carbon Dioxide 26 mmol/L (22-30); Chloride 106 mmol/L (98-107); Estimated Creatinine Clearance 79 ml/min; Glucose 210 mg/dl (70-99); Potassium 4.1 mmol/L (3.5-5.1); Sodium 138 mmol/L (135-145); eGFR 57.54
--- NOTE | 2025-08-12 05:36 | PTCARENOTE ---
no changes from prior assessment, call dejesus in reach
[2025-08-12 07:43] LABS: Glucose - Point of Care 219 mg/dl (70-99)
[2025-08-12] MEDS: PLAVIX 75 MG PO (08:12)
[2025-08-12] MEDS: HEPARIN 5000 UNITS SC ×3 (08:12→23:05)
[2025-08-12] MEDS: MIRALAX 17 GRAMS PO (08:12)
[2025-08-12] MEDS: LOW STRENGTH ASPIRIN 81 MG PO (08:12)
[2025-08-12] MEDS: ZESTRIL 10 MG PO (08:13)
[2025-08-12] MEDS: NORVASC 5 MG PO (08:13)
--- NOTE | 2025-08-12 08:41 | PN.DE.MGMTRT ---
Insulin Management
- -
08/12/2025 Diabetes Management Consult Follow up
Patient admitted 08/10 with c/o dizziness, found to have hypertensive crisis, BP as high as 233/135, CVA. PMH HTN, HLD, diabetes, GERD. Was taking no diabetes meds for 1 1/2 years due to no insurance A1C on admission 9%, cr 1.5, eGFR 52.97.
Patient is awake alert and oriented, able to discuss diabetes care. and children at bedside, very supportive. States about 5 years ago had an A1C of 12%, was on trulicity and metformin and A1C was down to 7%. Lost insurance about 1 1/2 years
ago and stopped all medications. Patient has R sided weakness.
Discussed with patient importance of glucose control and that insulin will be required at this time.
Glucose yesterday as high as 347. AC novolog increased to 7 units with moderate corrective, 12 units lantus one time dose given @ 1pm. Given 20 units lantus @ hs.
Fasting glucose today 219. Will increase HS lantus to 25 units and increase ac novolog to 10 units with moderate corrective insulin.
Diabetes Nurse Educator instructed patient on monitor and insulin administration . Due to cost recommended Reli-On meter temporarily (patient is applying for disability/medicaid which should cover meter and insulin).
Discussed with nurse
Will follow
Diabetes History
- -
Type of Diabetes: 2 requiring insulin
Pre-Admission Diabetes Regimen
08/12/25 08/12/25
04:02 05:05
Creatinine Cancelled 1.4 H
Lab Results
Hemoglobin A1c 9.0 % (4.0-5.6) H 08/11/25 04:40
Insulin Pump Settings
IP Diabetes Regimen
08/11/25 08/11/25 08/11/25
12:15 17:57 21:09
Glucose
POC Glucose 347 H 239 H 271 H
08/12/25 08/12/25 08/12/25
04:02 05:05 07:32
Glucose Cancelled 210 H
POC Glucose 219 H
Patient Education
[2025-08-12] MEDS: NOVOLOG FLEXPEN SC (08:50)
[2025-08-12] MEDS: NOVOLOG FLEXPEN-MODERATE RESISTANCE 5 UNITS SC (09:16)
[2025-08-12] MEDS: NOVOLOG FLEXPEN 10 UNITS SC ×3 (09:17→17:52)
[2025-08-12 09:21] LABS: Glucose - Point of Care 283 mg/dl (70-99)
--- NOTE | 2025-08-12 10:01 | PTCARENOTE ---
Rec'd care of patient at 0700. NIH completed at handoff with previous RN. NIH-3; limb ataxia and decreased sensation. Patient alert and oriented. MAEx4; weak in RUE and RLE. ST, rate in the 110-120's. C/o slight dizziness upon initially getting up.
Lisinopril and Amlodipine initiated. Cardene off at 0828. Lung sounds cta. Pulse ox 96% on RA. +BS. Appetite good. Voiding via urinal. OOB to chair at 0800. Ambulatory to bathroom x1 RW. Fall precautions reinforced. Patient verbalizes understanding.
Call dejesus within reach.
--- NOTE | 2025-08-12 10:46 | W.PN.HOSP.TC ---
Today's Communication/Plan
-
Switch to Cardizem from amlodipine. Await echocardiogram. Consult cardiology. Follow on telemetry.
Adjust insulin as needed. Diabetic nurse practitioner following.
Continue with DAPT and statins.
Continue with PT OT
Transferred to telemetry
Assessment / Plan
Assessment / Plan
IMPRESSION:
This is a 60-year-old with uncontrolled hypertension secondary to noncompliance with medications, hyperlipidemia, bet-lotjnlk-tfymdixja diabetes not currently on medical management presenting with acute onset of ataxia and subtle weakness of the
right side of his body. Ataxia appears to be related to the right side as well. Suspect possible cerebellar infarct however CT scan seems to show possible age-indeterminate lacunar infarct on the left. He has uncontrolled blood pressure today
230s over 130s in the ED.
PLAN:
Hypertensive emergency -patient with hypertensive emergency given elevated blood pressure with endorgan changes and neurological symptom.
- Now off Cardizem drip
- Patient initiated on lisinopril which is his home medication. Initiated on amlodipine as well by ICU team. Will prefer to change to Cardizem to help with his heart rate as well. If there is significant LVH may be on consider beta-margo.
Acute ischemic cerebral infarct - out of window for TNK on admission
- Patient with right-sided weakness.
- CTA head and neck shows no significant stenosis.
- Unclear if this is related to his fully controlled hypertension, diabetes.
- Telemetry shows mostly sinus tach versus atrial tach but no atrial fibrillation. Ask cardiology to review. Echo pending.
- Continue to modify risk factors-initiated on scheduled antihypertensives. Started on insulin along with metformin.
- Also initiated on dual antiplatelet agent by neurology.
Continue with PT OT
Also initiated on statins.
Diabetes -previously on Trulicity and oral agent metformin
-Sliding scale insulin for now
-A1c 9.0
- Restarted metformin. Also initiated on insulin to help with glycemic control in acute setting. Diabetic nurse practitioner following.
Abnormal EKG
Patient without any symptoms of angina. He has T wave changes now inversions compared to nonspecific changes in the past and anterior lateral leads. EKG shows persistent T wave abnormalities in the anterior and as well as lateral leads.. Unclear
if related to uncontrolled hypertension.
Troponins are negative.
Check echocardiogram
Consult cardiology
Abnormal creatinine-suspect chronic kidney disease with albuminuria. Check protein creatinine ratio .no recent baseline. Continue to follow. No acidosis or hyperkalemia. Continue to optimize treatment of hypertension and diabetes.
Left upper lobe lung abnormality-dedicated CT chest requested by pulmonary.
Hypomagnesemia-replete
DVT progresses�SCDs for now
CODE STATUS�full code
Dispo accounts receivable assistant
Discussed with REELING MACHINE OPERATOR
Transfer to telemetry
Total time spent on today's encounter was 52 minutes which included time spent in counseling the patient/family regarding diagnosis and treatment plan as listed above, goals of care, and symptom management. Case was discussed with nursing staff,
specialists, and care coordinators/case management. All labs and imaging personally reviewed by me. Remainder the time spent in detailed review of previous records, lab data, imaging, and other medical provider documentation.
Anticipated Discharge: > 48 hours
Subjective/Interval History
-
Date of Service: August 12, 2025
Patient is feeling a small improvement with his right arm strength and coordination.
No new symptoms.
Denies any headache. Denies any speech or vision issues.
Denies any shortness of breath or chest pain. Denies any palpitations.
Objective Data
-
Labs:
Laboratory Results
08/12/25 08/12/25
04:02 05:05
WBC 9.8
Hgb 15.3
Hct 42.7
Plt Count 245
Sodium Cancelled 138
Potassium Cancelled 4.1
Chloride Cancelled 106
Carbon Dioxide Cancelled 26
BUN Cancelled 28 H
Creatinine Cancelled 1.4 H
Glucose Cancelled 210 H
Calcium Cancelled 9.2
Vital Signs:
Vital Signs
Temp Pulse Resp BP Pulse Ox
97.6 F 129 21 127/94 96
08/12/25 07:37 08/12/25 10:10 08/12/25 10:10 08/12/25 10:10 08/12/25 08:10
I&O
08/11/25 08/12/25 08/13/25
06:59 06:59 06:59
Intake Total 187.5 / 200.0 900.0 / 912.5 505.0 / 505.0
Output Total 500 / 500 1300 / 1300
Balance -312.5 / -300.0 -400.0 / -387.5 505.0 / 505.0
Physical Exam
-
General: Comfortable
Respiratory: Clear to Auscultation and Non Labored Respirations; Negative Accessory Resp Muscle Use
Cardiac: Regular Rhythm, S1/S2 and Tachycardic
GI: Soft
Neuro: AO x 3; Negative No Motor Deficits (Right upper extremity 4+/5 right lower extremity 4+/5. Left side 5/5), Slurred Speech or Facial Droop
Psych: Calm; Negative Confused or Agitated
Data Reviewed
-
MRI: Report Reviewed by me (MRI of the brain)
Medical Tests (Nuc Med, Echo etc): Image personally visualized and interpreted (EKG)
Labs: Labs Reviewed by me
--- NOTE | 2025-08-12 11:29 | PTCARENOTE ---
Patient downgraded to tele level.
[2025-08-12] MEDS: CARDIZEM CD 120 MG PO (11:32)
--- NOTE | 2025-08-12 12:36 | W.PN.INTV ---
Addendum entered and electronically signed by John Stallings MD 08/12/25 15:57:
CT Chest reviewed. Pulmonary nodules, less than 5 mm
- Out patient follow up with Pulmonary clinic
- Supervisor Grounds service will sign off, please call as needed.
Original Note:
Today's Communication / Plan
Recommendations
- Increase lisinopril to 10 mg daily. Discontinue Cardizem infusion, add calcium channel margo
- IV labetalol as needed
- Outpatient follow-up with [facility] pulmonary clinic for lung nodule and lymphadenopathy. Information added to discharge section
- Patient can be transferred out of ICU, medical sociologist service will sign off, please call as needed
Assessment
-
#1. Hypertensive emergency
- Severely elevated blood pressure with stroke on admission
- Blood pressure better controlled.
- Off Cardene infusion now, increase lisinopril to 10 mg daily and add amlodipine 5 mg in addition.
- As needed labetalol for systolic above 170.
#2. Weakness/Ataxia with acute stroke.
- CTA without evidence of acute bleed. MRI confirmed acute stroke
- Continue neurochecks, patient not candidate of TNK due to being out of time window since onset of symptoms
- Patient on dual antiplatelet therapy with aspirin and Plavix in addition to Lipitor. Aggressive risk factor modification
- Neurology service on case
#3. DM
- Elevated triglycerides noted
- Continue basal and bolus insulin in addition to sliding scale.
Patient can be transferred out of ICU, medical sociologist service will sign off.
Other medical diagnoses:
- Mediastinal Lymphadenopathy and pulmonary nodules. needs dedicated CT Chest for further evaluation, also outpatient Pulmonary follow up. Information added to discharge section and patient counselled regarding need for follow up. CT chest in AM.
- HLD. Statins initiated.
DVT prophylaxis. Initiate heparin subcu, 5000 units every 8 hours.
Critical Care time 42 mins -- The patient is admitted for acute critical illness for the treatment of vital organ failure and/or prevention of further life-threatening conditions. Total care includes time spent in review of history, physical exam,
medications, hemodynamic/ventilator parameters, laboratory data, imaging and discussion with house staff, pharmacy, respiratory therapy, automotive parts specialist, and nursing.
Data:
CTA Head/Neck 07/2025: No acute intracranial hemorrhage.
Small localized focus of subtle diminished attenuation within the periventricular white matter adjacent to the posterior body left lateral ventricle. Possible mild chronic ischemic change versus age indeterminant white matter lacunar infarct.
Recommend follow-up MRI.
Cervical and intracranial major regional vasculature appears patent without evidence for hemodynamically significant stenosis or occlusion. Normal variant hypoplasia of the left anterior cerebral artery A1 segment.
No [place] of [place] region aneurysm or stenosis.
Incidental superior mediastinal adenopathy; possibly infectious, inflammatory, or neoplasm, such as lymphoma. There are small patchy nodular opacities in the left lung apex measuring up to 6.5 mm. Initial step for further evaluation recommended with
follow-up nonemergent chest CT
Subjective Dataa
Subjective Data
Date of Service:
Date of Service: August 12, 2025
Subjective:
Patient comfortably sitting in bed in no acute distress.
Review of Systems
Genitourinary: Other (All 14 systems reviewed and negative except as stated above in the history of present illness.)
Objective Data
Data Reviewed
Vital Signs / I&O / Oxygen:
Vital Signs
Temp Pulse Resp BP Pulse Ox
98.2 F 116 12 154/109 96
08/12/25 11:27 08/12/25 11:55 08/12/25 11:55 08/12/25 11:55 08/12/25 08:10
Intake and Output
08/11/25 08/12/25 08/13/25
06:59 06:59 06:59
Intake Total 187.5 / 200.0 900.0 / 912.5 505.0 / 505.0
Output Total 500 / 500 1300 / 1300
Balance -312.5 / -300.0 -400.0 / -387.5 505.0 / 505.0
SaO2 96
Physical Exam
General: Comfortable
HEENT: Normocephalic
Cardiovascular: S1-S2
Respiratory: Clear and Non-Labored Respirations
GI: Soft and Non Distended
Neurology: Awake and Alert
Skin: Warm
Labs/Micro/Reports
Lab Data
08/12/25 04:02
08/12/25 05:05
--- NOTE | 2025-08-12 14:07 | CON.CAR ---
Addendum entered and electronically signed by Dustin Victoria MD 08/12/25 17:52:
I saw and examined the patient.
The Larry Operator's note was reviewed and I agree with the note.
Comment:
GEN: No distress, awake, Ox3
HEENT: supple, anicteric, mmm
LUNGS: CTA, no wheezes/rales
CV: Reg, S1/S2, 1/6 syst LSB, no murmur
ABD: soft, BS+, NT/ND
EXT: No edema
NEURO: Right-sided weakness
SKIN: No rash
Plan:
60-year-old male with past medical history of hypertension and diabetes presents with ataxia and a new acute left frontal lobe CVA. Patient lost his health insurance about a year and a half ago has been off his medications for diabetes and
hypertension. He presented with ataxia and was found to have a new CVA. We were asked to evaluate him regarding abnormal ECG.
Echocardiogram today reveals normal LV size and function. EF 69% with moderate LVH, aortic sclerosis and mildly dilated root of 4.5 cm.
MRI of the brain was reviewed revealed a 1.2 cm acute ischemic infarct of the left frontal lobe and a 9 mm subacute ischemic infarct in the right frontal lobe.
CTA of the head and neck reveals no significant carotid stenosis
I reviewed his EKGs. He has sinus tachycardia with first-degree AV block and nonspecific T wave abnormalities. These have been unchanged from prior ECGs.
At this point I will continue management of his stroke. Continue to follow telemetry look for atrial arrhythmias. He will need a 2-week monitor to look for any atrial fibrillation.
Continue aspirin, Plavix, atorvastatin, and insulin. Continue lisinopril and diltiazem. He does have some sinus tachycardia and may need further titration of his calcium channel margo.
He currently has no insurance so will need generic medications for now.
Will follow
Original Note:
Consultation
Consultation Request
Date/Time Consultation Requested: 08/12/25
Date/Time Consultation Performed: 08/12/25
Requesting Provider: Dr. Dorsey
Performing Provider: Dr. Victoria
Reason for Consultation: Abnormal ECG
Medical History
-
History of Present Illness:
Patient came to the ER on Sunday with new ataxia and was admitted with possible CVA and cardiology is now consulted for abnormal ECG. Patient was seen by cardiology in the office in 2021 for HTN and symptoms of ZAMUDIO and dizziness. At that time
patient was recommended tighter BP and blood sugar control and to follow-up with our office in 6 months, but he did not do that. Last time patient saw his PCP was in 2022. In the last few years the patient has lost his job and health insurance and
has been under a great deal of stress. Patient has been having HTN at home with BP of 200/100 at times, but he could not afford to see his PCP or to fill prescriptions. He has been exercising by taking walks, but on the day of admission he had
trouble with his usual walk and then felt a lack of coordination in his right hand and so he came to the ER. CT of the head was negative for intracranial bleed, but there was concern for mediastinal adenopathy and nodules. Patient was admitted and
subsequent MRI of the brain showed acute left frontal lobe and subacute right frontal lobe CVAs. Family is waiting to hear from neurology. In the meantime cardiology has been consulted for abnormal ECG that was first seen on admission on
08/10/2025, ECG reviewed by me shows SR with anterolateral T wave changes that have improved on my review of subsequent ECGs. Patient denies chest pain or SOB. Patient had symptoms of dyspnea and fatigue when he was seen back in 2021 and he was
ordered stress echo and echo at that time which he never completed.
PMH:
h/o HTN
DM2
Medication noncompliance due to lack of health insurance
Past Medical History
Past Medical History: Other (In HPI)
Past Surgical History: Orthopedic (Right biceps surgery 2019)
Social History
Tobacco: Non-Smoker
Alcohol: Occasional
Drug: None
Personal:
Living: With Family
Employment: Not Employed
Family History
Family History: Cancer, Diabetes and Other (CVA)
Allergies / Home Medications
Allergy/AdvReac Type Severity Reaction Status Date / Time
No Known Allergies Allergy Verified 08/10/25 19:52
�Medication �Instructions �Recorded �Confirmed �Type
No Meds [No Current Medications] 08/11/25 08/11/25 History
Review of Systems
-
History Source: Patient and Family (, daughter and son at bedside helping with HPI)
All other systems: Negative unless noted
Physical Exam
Vital Signs
Temp Pulse Resp BP Pulse Ox
98.2 F 116 12 154/109 96
08/12/25 11:27 08/12/25 11:55 08/12/25 11:55 08/12/25 11:55 08/12/25 08:10
GEN: NAD, AAO x 3
HEENT: EOMI, MMM
LUNGS: RA. CTA B/L, no wheeze
CV: SR on telemetry. Reg, S1/S2, no murmur
ABD: soft, BS+, NT, ND
EXT: No edema B/L LE
NEURO: Gross non-focal
SKIN: No rash
Lab Results
08/12/25 04:02
08/12/25 05:05
Troponin I 0.026 ng/ml 08/10/25 20:04
Impression / Plan
-
PCP: Rachel Solitario PA-C
Cardiology: Dr. GLORIA Granados
Impression:
Admitted with possible CVA 08/10/2025
Acute left frontal lobe and subacute right frontal lobe CVA but MRI of brain 08/11/2025
Abnormal ECG
HTN emergency on admission
h/o HTN
DM2
Abnormal CT scan with mediastinal lymphadenopathy and pulmonary nodules
Medication noncompliance due to lack of health insurance
Echo 08/11/2025: EF 69%, moderate LVH, no WMA, normal RV size and function, mildly dilated aortic root, Sinus of valsalva measures 4.5 cm, sinotubular junction measures 4.1 cm, normal ascending aorta.
Plan:
-Patient came to the ER on Sunday with new ataxia and was admitted with possible CVA and cardiology is now consulted for abnormal ECG. Patient was seen by cardiology in the office in 2021 for HTN and symptoms of ZAMUDIO and dizziness. At that time
patient was recommended tighter BP and blood sugar control and to follow-up with our office in 6 months, but he did not do that. Last time patient saw his PCP was in 2022. In the last few years the patient has lost his job and health insurance and
has been under a great deal of stress. Patient has been having HTN at home with BP of 200/100 at times, but he could not afford to see his PCP or to fill prescriptions. He has been exercising by taking walks, but on the day of admission he had
trouble with his usual walk and then felt a lack of coordination in his right hand and so he came to the ER. CT of the head was negative for intracranial bleed, but there was concern for mediastinal adenopathy and nodules. Patient was admitted and
subsequent MRI of the brain showed acute left frontal lobe and subacute right frontal lobe CVAs. Family is waiting to hear from neurology. In the meantime cardiology has been consulted for abnormal ECG that was first seen on admission on
08/10/2025, ECG reviewed by me shows SR with anterolateral T wave changes that have improved on my review of subsequent ECGs. Patient denies chest pain or SOB. Patient had symptoms of dyspnea and fatigue when he was seen back in 2021 and he was
ordered stress echo and echo at that time which he never completed.
-ECG from admission on 08/10/2025 was reviewed by me and is SR with anterolateral T wave inversions and on most recent ECG from 08/11/2025 also reviewed by me the anterolateral T wave changes have improved and he remains in SR.
-Telemetry reviewed by me looks like SR throughout
-Patient with abnormal ECG, but echo report reviewed and summarized above by me shows preserved EF without WMA. Suspect that ECG changes could have been related to HTN emergency or CVA. Patient is not a candidate for stress test or cardiac cath at
this time due to acute and subacute CVA, but would recommend eventual outpatient stress test
-MRI of the brain suggest left acute and right subacute CVA. No evidence of atrial arrhythmia on telemetry thus far. Await input from neurology, but suspect they will want a long-term outpatient manager cardiac.
-HTN emergency on admission with improved BP following Cardene gtt which is now stopped. Previous dose of lisinopril 10 mg daily has been started and he is also new to Cardizem CD 120 mg daily. Of note patient previously tolerated amlodipine, but
would not start while he is also on Cardizem, would pick 1 or the other.
-New to aspirin and Plavix for CVA
-Case management is helping patient apply for Medicaid and family is hoping for [facility]
--- NOTE | 2025-08-12 14:09 | PTCARENOTE ---
Patient ate lunch before staff able to obtain fingerstick. Glucose level 273 post meal. Discussed with Hospitalist, RN advised to give standing dose and hold sliding scale. Patient educated on importance of checking glucose level and insulin dosing.
[2025-08-12] MEDS: NOVOLOG FLEXPEN-MODERATE RESISTANCE SC (14:11)
[2025-08-12 14:23] LABS: Glucose - Point of Care 273 mg/dl (70-99)
[2025-08-12] MEDS: TYLENOL 650 MG PO (14:34)
--- NOTE | 2025-08-12 14:55 | CM ---
Hypertensive emergency, CVA. B/P 135/95 and 154/109, B/P medication adjustments. Discharge POC: Patient with no insurance. HRSI involved, visited patient, forms completed. As of today, Therapy recommending acute rehab.
[2025-08-12] MEDS: NOVOLOG FLEXPEN-MODERATE RESISTANCE 1 UNITS SC (17:52)
[2025-08-12] MEDS: LIPITOR 40 MG PO (18:02)
--- NOTE | 2025-08-12 18:03 | PTCARENOTE ---
Patient educated on insulin administration. Demonstrating understanding with lunch and dinner coverage under supervision.
[2025-08-12 18:04] LABS: Glucose - Point of Care 185 mg/dl (70-99)
--- NOTE | 2025-08-12 18:23 | TRANSFER ---
Patient transferred via wheelchair to .
[2025-08-12 21:21] LABS: Glucose - Point of Care 143 mg/dl (70-99)
[2025-08-12] MEDS: LANTUS 0.25 UNITS SC (21:21)
[2025-08-13] VITALS (12 sets, daily range): BP systolic 155–198; BP diastolic 70–120; PULSE 94; O2SAT 96
[2025-08-13] MEDS: PROTONIX 40 MG PO ×2 (00:28→08:43)
[2025-08-13] MEDS: TRANDATE 10 MG IV ×3 (03:31→17:02)
--- NOTE | 2025-08-13 08:06 | PN.DE.MGMTRT ---
Insulin Management
- -
08/13/2025 Diabetes Management Consult Follow up
Patient admitted 08/10 with c/o dizziness, found to have hypertensive crisis, BP as high as 233/135, CVA. PMH HTN, HLD, diabetes, GERD. Was taking no diabetes meds for 1 1/2 years due to no insurance A1C on admission 9%, cr 1.5, eGFR 52.97.
Patient is awake alert and oriented, able to discuss diabetes care. Children at bedside, very supportive. States about 5 years ago had an A1C of 12%, was on trulicity and metformin and A1C was down to 7%. Lost insurance about 1 1/2 years ago and
stopped all medications. Patient has R sided weakness.
Discussed with patient importance of glucose control and that insulin will be required at this time.
Yesterday AC novolog increased to 10 units with moderate corrective, 25 units lantus @ hs. Glucose range 283 to 185 pre dinner after increase in insulin. HS glucose 143. Patient received 25 units lantus @ HS.
Fasting glucose today 205. Will increase HS lantus 28 units and increase ac novolog to 13 units decrease moderate to low corrective insulin AC.
Diabetes Nurse Educator instructed patient on monitor and insulin administration . Due to cost recommended [employer] meter temporarily (patient is applying for disability/medicaid which should cover meter and insulin).
Discussed with nurse
Will follow
Diabetes History
- -
Type of Diabetes: 2 requiring insulin
Pre-Admission Diabetes Regimen
Lab Results
Hemoglobin A1c 9.0 % (4.0-5.6) H 08/11/25 04:40
Insulin Pump Settings
IP Diabetes Regimen
08/12/25 08/12/25 08/12/25
09:10 14:07 17:51
POC Glucose 283 H 273 H 185 H
08/12/25
21:20
POC Glucose 143 H
Meal type: Dinner
Meal type: Lunch
Meal type: Breakfast
Amount consumed: 100%
Amount consumed: 100%
Amount consumed: 100%
Patient Education
[2025-08-13 08:33] LABS: Glucose - Point of Care 205 mg/dl (70-99)
[2025-08-13] MEDS: NOVOLOG FLEXPEN-MODERATE RESISTANCE SC (08:42)
[2025-08-13] MEDS: NOVOLOG FLEXPEN SC (08:42)
[2025-08-13] MEDS: ZESTRIL 10 MG PO (08:43)
[2025-08-13] MEDS: PLAVIX 75 MG PO (08:43)
[2025-08-13] MEDS: LOW STRENGTH ASPIRIN 81 MG PO (08:43)
[2025-08-13] MEDS: HEPARIN 5000 UNITS SC ×3 (08:44→23:03)
[2025-08-13] MEDS: CARDIZEM CD 120 MG PO ×2 (08:44→12:21)
[2025-08-13] MEDS: NOVOLOG FLEXPEN-LOW RESISTANCE 2 UNITS SC ×2 (08:45→12:22)
[2025-08-13] MEDS: NOVOLOG FLEXPEN 11 UNITS SC ×2 (08:45→12:21)
[2025-08-13] MEDS: MIRALAX PO (08:50)
--- NOTE | 2025-08-13 11:28 | W.PN.UPDATE ---
Update Note
Progress Note Update
60-year-old man with left frontal lobe CVA, off meds recently related to loss of insurance, denies palpitations tachycardia etc.
PMH: Diabetes, hypertension, noncompliance regarding meds related to loss of insurance
Current meds: Aspirin 81 mg a day, atorvastatin 40 mg a day, clopidogrel 75 mg a day, subcu heparin, lisinopril 10 mg daily, Lantus, diltiazem CD240 mg a day, pantoprazole 40 mg a day
187/113, pulse 93, respiratory rate 18,Weight is 127.6 kg pleasant, very talkative, uninhibited, head neck exam unremarkable, lungs are clear, regular rate and rhythm, no obvious murmurs, obese, not much edema right hemiparesis
Troponin: 0.026, BUN/creatinine were 28 and 1.4, glucose was 210, total cholesterol was 249 with triglycerides of 923, HDL 29
Echo: Moderate LVH, EF is 69%, normal RV, aortic sclerosis, aorta is 4.5 cm at the sinuses of Valsalva, no mitral regurgitation, no tricuspid regurgitation
ECG sinus rhythm, possible lateral ischemia, LVH
Impression:
Right frontal CVA
Hypertension
Diabetes
Hyperlipidemia
Noncompliance related to loss of insurance
Dilated aortic root
Plan:
Overall stable cardiac status, though blood pressure remains elevated, agree with uptitration of lisinopril and diltiazem, patient may need a diuretic
Suspect that CVA is atheroembolic rather than cardioembolic
Antiplatelet regimen per neurology
Will arrange for outpatient monitoring
Patient will need serial imaging studies of aorta though not urgently
Consider outpatient ischemic evaluation
--- NOTE | 2025-08-13 11:38 | W.PN.HOSP.TC ---
Today's Communication/Plan
-
Increase Cardizem and lisinopril and follow blood pressure closely
Continue with other current treatments and PT/OT treatments.
Assessment / Plan
Assessment / Plan
IMPRESSION:
This is a 60-year-old with uncontrolled hypertension secondary to noncompliance with medications, hyperlipidemia, [id number] diabetes not currently on medical management presenting with acute onset of ataxia and subtle weakness of the
right side of his body. Ataxia appears to be related to the right side as well. Suspect possible cerebellar infarct however CT scan seems to show possible age-indeterminate lacunar infarct on the left. He has uncontrolled blood pressure today
230s over 130s in the ED.
PLAN:
Hypertensive emergency -patient with hypertensive emergency given elevated blood pressure with endorgan changes and neurological symptom.
- Now off Cardene drip
- Uptitrate Cardizem today.
- Uptitrate lisinopril today.
Acute ischemic cerebral infarct - out of window for TNK on admission
- Patient with right-sided weakness.
- CTA head and neck shows no significant stenosis.
- Unclear if this is related to his fully controlled hypertension, diabetes.
- Telemetry shows mostly sinus tach versus atrial tach but no atrial fibrillation. Ask cardiology to review. Echo pending.
- Continue to modify risk factors-initiated on scheduled antihypertensives. Started on insulin along with metformin.
- Also initiated on dual antiplatelet agent by neurology.
Continue with PT OT-acute rehab recommended-consult physiatry.
Also initiated on statins.
Diabetes -previously on Trulicity and oral agent metformin
-Sliding scale insulin for now
-A1c 9.0
- Restarted metformin. Also initiated on insulin to help with glycemic control in acute setting. Diabetic nurse practitioner following.
Abnormal EKG
Patient without any symptoms of angina. He has T wave changes now inversions compared to nonspecific changes in the past and anterior lateral leads. EKG shows persistent T wave abnormalities in the anterior and as well as lateral leads.. Unclear
if related to uncontrolled hypertension.
Troponins are negative.
Echo shows normal EF and moderate LVH. No wall motion abnormality.
Appreciate cardiology input-no interventions warranted. 2-week Holter monitor as an outpatient recommended.
Abnormal creatinine-suspect chronic kidney disease with albuminuria. Check protein creatinine ratio .no recent baseline. Continue to follow. No acidosis or hyperkalemia. Continue to optimize treatment of hypertension and diabetes.
Left upper lobe lung abnormality-dedicated CT chest requested by pulmonary. CT chest shows multiple small pulmonary nodules seen bilaterally, none larger than 5 mm. Follow-up with pulmonary as outpatient.
Hypomagnesemia-replete
DVT progresses�SCDs for now
CODE STATUS�full code
Discussed with case management-Medicaid application submitted for acute rehab placement.
Anticipated Discharge: > 48 hours
Subjective/Interval History
-
Date of Service: August 13, 2025
Right-sided strength. No new complaints.
Objective Data
-
Vital Signs:
Vital Signs
Temp Pulse Resp BP Pulse Ox
97.9 F 93 18 187/113 97
08/13/25 11:19 08/13/25 11:19 08/13/25 11:19 08/13/25 11:19 08/13/25 11:19
I&O
08/12/25 08/13/25 08/14/25
06:59 06:59 06:59
Intake Total 900.0 / 912.5 625.0 / 625.0
Output Total 1300 / 1300 125 / 125
Balance -400.0 / -387.5 500.0 / 500.0
Physical Exam
-
General: Comfortable
Respiratory: Non Labored Respirations; Negative Accessory Resp Muscle Use
Cardiac: Regular Rhythm and S1/S2
Neuro: AO x 3; Negative No Motor Deficits (Right-sided hemiparesis yesterday)
Psych: Calm; Negative Confused
Data Reviewed
-
Labs: Labs Reviewed by me
[2025-08-13 12:18] LABS: Glucose - Point of Care 209 mg/dl (70-99)
--- NOTE | 2025-08-13 12:57 | CM ---
JENY reviewed chart, spoke with Karli from [facility], [place] application submitted.
Referral sent to [facility], request for [place] location. [facility] able to accept patient once application approved.
PMR consulted.
Patient seen bedside, aware [facility] able to accept once application approved, agreeable to Acute Rehab.
Update to Hospitalist.
CM will continue to follow for all discharge planing needs.
Plan; [place] application submitted ([facility] following), [facility] able to accept once application approved.
--- NOTE | 2025-08-13 16:18 | W.PN.CARDCBS ---
Today's Communication / Plan
-
-uptitrate antihypertensives
-2 week outpt monitor, working on cost
Impression / Plan
-
PCP: Rachel Solitario PA-C
Cardiology: Dr. GLORIA Granados
Impression:
Admitted with possible CVA 08/10/2025
Acute left frontal lobe and subacute right frontal lobe CVA but MRI of brain 08/11/2025
Abnormal ECG
HTN emergency on admission
h/o HTN
DM2
Abnormal CT scan with mediastinal lymphadenopathy and pulmonary nodules
Medication noncompliance due to lack of health insurance
Echo 08/11/2025: EF 69%, moderate LVH, no WMA, normal RV size and function, mildly dilated aortic root, Sinus of valsalva measures 4.5 cm, sinotubular junction measures 4.1 cm, normal ascending aorta.
Plan:
-admitted with possible CVA and cardiology consulted for abnormal ECG. Patient was seen by cardiology in the office in 2021 for HTN and symptoms of ZAMUDIO and dizziness. At that time patient was recommended tighter BP and blood sugar control and to
follow-up with our office in 6 months, but he did not do that. Last time patient saw his PCP was in 2022. In the last few years the patient has lost his job and health insurance and has been under a great deal of stress. Patient has been having
HTN at home with BP of 200/100 at times, but he could not afford to see his PCP or to fill prescriptions. He has been exercising by taking walks, but on the day of admission he had trouble with his usual walk and then felt a lack of coordination in
his right hand and so he came to the ER. CT of the head was negative for intracranial bleed, but there was concern for mediastinal adenopathy and nodules. Patient was admitted and subsequent MRI of the brain showed acute left frontal lobe and
subacute right frontal lobe CVAs. Family is waiting to hear from neurology. In the meantime cardiology has been consulted for abnormal ECG that was first seen on admission on 08/10/2025, ECG shows SR with anterolateral T wave changes that have
improved on my review of subsequent ECGs. Patient denies chest pain or SOB. Patient had symptoms of dyspnea and fatigue when he was seen back in 2021 and he was ordered stress echo and echo at that time which he never completed.
-ECG from admission on 08/10/2025 SR with anterolateral T wave inversions and on most recent ECG from 08/11/2025 also reviewed by me the anterolateral T wave changes have improved and he remains in SR.
-Telemetry reviewed by me: Normal sinus rhythm, occasional sinus tachycardia to 120s
-Patient with abnormal ECG, but echo report reviewed and summarized above by me shows preserved EF without WMA. Suspect that ECG changes could have been related to HTN emergency or CVA. Patient is not a candidate for stress test or cardiac cath at
this time due to acute and subacute CVA, but would recommend eventual outpatient stress test
-MRI of the brain suggest left acute and right subacute CVA. No evidence of atrial arrhythmia on telemetry thus far. Await input from neurology, but suspect they will want a long-term outpatient library monitor.
-Ideally we would like him to wear a 2-week outpt CAM monitor. I priced this and out an [id number] cost would be $325. I will see if social and human services assistant is able to assist with cost of monitor.
-HTN emergency on admission with improved BP following Cardene gtt which is now stopped.
-Blood pressure remains elevated today and BPs up to 180s/120s and pt receiving PRN doses Labetolol
-Diltiazem has been uptitrated to 240 mg daily and lisinopril has been uptitrated to 20 mg daily.
- I reviewed last office visit with PCP which was in 2022 and at that time patient was on lisinopril HCTZ with extra lisinopril 20 mg daily so total of lisinopril 40 mg daily. Was also on amlodipine 5 mg daily which he tolerated.
-creat 1.4-1.5 this admission so hold on starting HCTZ.
- Calcium channel margo was switched from amlodipine to Cardizem during this admission to help with rate control as he was initially tachycardic.
-consider change back to amlodipine and add beta margo as additional antihypertensive and rate lowering med
-New to aspirin and Plavix for CVA
-Case management is helping patient apply for Medicaid and family is hoping for [facility] rehab
Progress Note - Dinkey Mechanic
Subjective
Date of Service: August 13, 2025
feels well
no CP, SOB
BP elevated
Objective
Labs:
08/12/25 04:02
08/12/25 05:05
Labs
Hgb 15.3 g/dL (13.0-18.0) 08/12/25 04:02
Hct 42.7 % (39.0-52.0) 08/12/25 04:02
Plt Count 245 10^3/uL (130-400) 08/12/25 04:02
PT 13.8 Sec (11.4-14.6) 08/11/25 04:40
INR 1.03 08/11/25 04:40
APTT 25.7 Sec (23.4-35.0) 08/11/25 04:40
Sodium 138 mmol/L (135-145) 08/12/25 05:05
Potassium 4.1 mmol/L (3.5-5.1) 08/12/25 05:05
BUN 28 mg/dl (9-20) H 08/12/25 05:05
Creatinine 1.4 mg/dL (0.7-1.3) H 08/12/25 05:05
Glucose 210 mg/dl (70-99) H 08/12/25 05:05
Troponins
08/10/25
20:04
Troponin I 0.026
Vital Signs and I&O:
Vital Signs
Temp Pulse Resp BP Pulse Ox
97.9 F 93 18 183/120 97
08/13/25 11:19 08/13/25 12:21 08/13/25 11:19 08/13/25 12:21 08/13/25 11:19
Vital Signs
Temp Pulse Resp BP Pulse Ox
97.9 F 93 18 183/120 97
08/13/25 11:19 08/13/25 12:21 08/13/25 11:19 08/13/25 12:21 08/13/25 11:19
Intake & Output
08/11/25 08/12/25 08/13/25 08/14/25
06:59 06:59 06:59 06:59
Intake Total 187.5 / 200.0 900.0 / 912.5 625.0 / 625.0
Output Total 500 / 500 1300 / 1300 125 / 125
Balance -312.5 / -300.0 -400.0 / -387.5 500.0 / 500.0
Physical Exam
Physical Exam
GEN: No distress, awake, Ox3
HEENT: supple, anicteric, mmm
LUNGS: CTA, no wheezes/rales
CV: Reg, S1/S2, , no murmur
ABD: soft, BS+, NT/ND
EXT: No edema
NEURO: Gross non-focal
SKIN: No rash
[2025-08-13 16:59] LABS: Glucose - Point of Care 169 mg/dl (70-99)
[2025-08-13] MEDS: LIPITOR 40 MG PO (17:02)
[2025-08-13] MEDS: NOVOLOG FLEXPEN 13 UNITS SC (17:03)
[2025-08-13] MEDS: NOVOLOG FLEXPEN-LOW RESISTANCE 1 UNITS SC (17:03)
[2025-08-13 21:31] LABS: Glucose - Point of Care 141 mg/dl (70-99)
[2025-08-13] MEDS: LANTUS 0.28 UNITS SC (21:36)
[2025-08-14] VITALS (8 sets, daily range): BP systolic 149–186; BP diastolic 91–122; PULSE 95
--- NOTE | 2025-08-14 07:27 | PN.DE.MGMTRT ---
Insulin Management
- -
08/14/2025: Diabetes Management Follow up
Patient admitted 08/10 with c/o dizziness, found to have hypertensive crisis, BP as high as 233/135, CVA. PMH HTN, HLD, diabetes, GERD. Was taking no diabetes meds for 1 1/2 years due to no insurance. States about 5 years ago had an A1C of 12%,
was on Trulicity and metformin and A1C was down to 7%. Lost insurance about 1 1/2 years ago and stopped all medications. Patient has R sided weakness.
Discussed with patient importance of glucose control and that insulin will be required at this time. A1C on admission 9%, cr 1.5, eGFR 52.97.
Patient is A/A/O, resting in bed, offers no complaints, able to discuss diabetes care. No family at bedside. States he has been approved for [facility].
Yesterday pre lunch glucose was 209, AC NovoLog increased from 11 to 13 units and corrective changed to low. Glucose improved to 141 pre-dinner.
Received 25 units Lantus @ HS, Fasting glucose 241 this AM. Will increase HS Lantus 30 units and cont AC NovoLog 13 units with low corrective insulin AC.
Diabetes Nurse Educator instructed patient on monitor and insulin administration. Due to cost recommended Reli-On meter temporarily (patient is applying for disability/medicaid which should cover meter and insulin).
Discussed with nurse. Will cont to follow
Diabetes History
- -
Type of Diabetes: 2 requiring insulin
Pre-Admission Diabetes Regimen
Lab Results
Hemoglobin A1c 9.0 % (4.0-5.6) H 08/11/25 04:40
Insulin Pump Settings
IP Diabetes Regimen
08/13/25 08/13/25 08/13/25
08:32 12:17 16:57
POC Glucose 205 H 209 H 169 H
08/13/25
21:22
POC Glucose 141 H
Meal type: Breakfast
Amount consumed: 100%
Patient Education
[2025-08-14] MEDS: MIRALAX 17 GRAMS PO (07:56)
[2025-08-14] MEDS: LOW STRENGTH ASPIRIN 81 MG PO (07:56)
[2025-08-14] MEDS: PLAVIX 75 MG PO (07:56)
[2025-08-14] MEDS: PROTONIX 40 MG PO (07:57)
[2025-08-14] MEDS: HEPARIN 5000 UNITS SC ×3 (07:57→23:10)
[2025-08-14 08:12] LABS: Glucose - Point of Care 241 mg/dl (70-99)
[2025-08-14] MEDS: NOVOLOG FLEXPEN 13 UNITS SC ×3 (08:13→17:00)
[2025-08-14] MEDS: CARDIZEM CD 240 MG PO (08:13)
[2025-08-14] MEDS: ZESTRIL 20 MG PO (08:13)
[2025-08-14] MEDS: NOVOLOG FLEXPEN-LOW RESISTANCE 2 UNITS SC ×2 (08:14→17:01)
--- NOTE | 2025-08-14 08:40 | CON.MD ---
Documented by User: Camila Rhodes PA-C 08/14/25 17:10
Consultation - Medical
-
Referral: Dr. Dorsey
Chief Complaint: Stroke
History of Present Illness: This is a 60-year-old male with PMH of( heq-ukjsnjr-girdxagdc diabetes, hypertension, hyperlipidemia, obesity presenting to [facility] on 08/10/2025 for evaluation of right sided ataxia and dizziness. He reported to have lost
his job a year and a half ago and has stopped taking his blood pressure and diabetic medications due to lack of insurance. his blood pressure has been running high at home in the 200s over 100 as he was previously on lisinopril and
hydrochlorothiazide.
Patient was seen by cardiology in 2021 for HTN, ZAMUDIO and dizziness. At that time BP and blood sugar control were recommended with follow-up in 6 months He has been under a great deal of stress, could not afford to see his PCP or fill his
prescriptions. He has been exercising by taking walks, but on the day of admission he felt a lack of coordination in his right hand and leg and so his family told him to go to the ER.
In the ED, he was afebrile, blood pressure was 230/140 with a pulse rate of 93 and was satting 98% on room air. ECG showed sinus rhythm at a rate of 95 with T wave inversions in the lateral leads. CT of the head and CT angio shows no acute acute
intracranial hemorrhage. Small localized focus of subtle diminished attenuation within the periventricular white matter adjacent to the posterior body left lateral ventricle. Possible mild chronic ischemic change versus age indeterminant white
matter lacunar infarct. Recommend follow-up MRI. CTA shows no large vessel occlusion dissection or aneurysm.
CTA head and neck:
No acute intracranial hemorrhage.
Small localized focus of subtle diminished attenuation within the periventricular white matter adjacent to the posterior body left lateral ventricle. Possible mild chronic ischemic change versus age indeterminant white matter lacunar infarct.
Recommend follow-up MRI. Cervical and intracranial major regional vasculature appears patent without evidence for hemodynamically significant stenosis or occlusion. Normal variant hypoplasia of the left anterior cerebral artery A1 segment.
No [place] of [place] region aneurysm or stenosis.
MRI of the brain suggest left acute frontal lobe and subacute ischemic infarct in the right frontal lobe henry radiata. Neurology recommended Plavix and aspirin x 21 days. Patient not candidate for TNK on admission due to out of window for
treatment.
Cardiology consulted for abnormal EKG . Ideally, cardiology would like him to wear a 2-week outpatient CAM monitor which was priced with [id number] cost of $325. bag worker Amber contacted who will look into it. Working on better BP
control.
Abnormal EKG
Patient without any symptoms of angina. He has T wave changes now inversions compared to nonspecific changes in the past and anterior lateral leads. EKG shows persistent T wave abnormalities in the anterior and as well as lateral leads.. Unclear
if related to uncontrolled hypertension. Troponins are negative.
Echo shows normal EF and moderate LVH. No wall motion abnormality. Sinus tachycardia-add TSH. Continue with Cardizem.
Past Medical History: [id number]-hcvwhqjuk diabetes, hypertension, hyperlipidemia, obesity
Past Surgical History:
Social History
Tobacco: Non-smoker
Alcohol: None
Drug: None
Family History
Family History: Not pertinent
Social History
Functional Level Premorbidity: Independent for all activities.
Current Functional Level: Grooming, toileting, upper body care- Min Assist, lower body care- Dependent
Live With: spouse and son
24-hour assistance available:
Number of floors: multi level
# steps to enter: 2
# steps to second floor: FF
Potential First Floor Set Up: yes
Driving: yes
Occupation: unemployed- lost job 1.5 year ago
Allergies :
Allergy/AdvReac Type Severity Reaction Status Date / Time
No Known Allergies Allergy Verified 08/10/25 19:52
Medications:
Active Current Visit Medication List
Category Date Time Status
Acetaminophen [Tylenol/Feverall] Med 08/11/25 01:55 Active
650 mg RECTAL Q4HPRN PRN
Acetaminophen [Tylenol] Med 08/11/25 01:55 Active
650 mg PO Q4HPRN PRN
Aspirin Chewable [Low Strength Aspirin] Med 08/11/25 08:00 Active
81 mg PO DAILY
Atorvastatin [Lipitor] Med 08/11/25 18:00 Active
40 mg PO QPM
Clopidogrel Bisulfate [Plavix] Med 08/11/25 08:00 Active
75 mg PO DAILY
Dextrose 50%-Water [Dextrose 50% Syringe] Med 08/13/25 09:00 Active
12.5 grams IV [id number] PRN
Diltiazem Extended Release [Cardizem Cd] Med 08/14/25 08:00 Active
240 mg PO DAILY
Flush (0.9% Sodium Chloride) [Flush (Nss)] Med 08/11/25 03:00 Active
See Dose Instructions IV PER PROTOCOL
Glucagon [GlucaGen] Med 08/13/25 09:00 Active
1 mg IM PRN PRN
Heparin Med 08/11/25 09:45 Active
5,000 units SC Q8
Insulin Aspart Corrective Low [Novolog Flexpen-Low Med 08/13/25 08:00 Active
Resistance]
See Protocol SC AC
Insulin Aspart Pen [Novolog Flexpen] Med 08/13/25 16:30 Active
13 units SC AC
Insulin Glargine Lantus [Lantus] 28 units Med 08/13/25 22:00 Active
Subcutaneous Insulin Syringe [Syringe-Insulin] 0 unit
SC HS
Labetalol HCl [Trandate] Med 08/12/25 07:49 Active
10 mg IV Q6HPRN PRN
Lisinopril [Zestril] Med 08/14/25 08:00 Active
20 mg PO DAILY
Pantoprazole [Protonix] Med 08/13/25 08:00 Active
40 mg PO DAILY
Polyethylene Glycol Powder [Miralax] Med 08/11/25 08:00 Active
17 grams PO DAILY
Prochlorperazine [Compazine] Med 08/11/25 08:54 Active
10 mg IV Q6HPRN PRN
Review Of Systems
-
History Source: Patient
All other systems: Negative unless noted
Constitutional: Reports Fatigue
Eye: Reports No Symptoms
EENT: Reports No Symptoms
Respiratory: Reports No Symptoms
Cardiac: Reports No Symptoms
Abdomen/GI: Reports No Symptoms
: Reports No Symptoms
Musculoskeletal: RLE weakness and foot drop
Integumentary: Reports No Symptoms
Neurological: Reports Weakness
Psych: Reports No Symptoms
Endocrine: Reports No Symptoms
Hematologic/Lymphatic: Reports No Symptoms
Immunology: Reports No Symptoms
Vital Signs:
Temp Pulse Resp BP Pulse Ox
97.6 F 86 20 149/91 98
08/14/25 11:40 08/14/25 14:20 08/14/25 11:40 08/14/25 14:20 08/14/25 11:40
Height 6 ft 1 in
Actual Weight 127.6 kg
Body Mass Index (BMI) 37.1
Physical Exam:
General Appearance/Observation: Well-developed, well-nourished individual in no apparent distress.
Pain/Comfort Assessment: Denies
Mood/Affect: Appropriate
Integumentary/Operative Site:
�� Pressure Ulcer evaluation: absent over heels
�� Other Type of Wound: absent
��
Eyes: Conjunctiva/Lids: normal ��� Pupils: pupils equal round and reactive to light and Accommodation
Ears/Nose/Throat: oral mucosa moist,� throat clear.������������ Lips/Teeth/Gums: normal
Neck: No muscle spasm or tenderness
Cardiovascular: Heart: regular, no murmur
Pulses: dorsalis pedis 2+ bilaterally
Respiratory: Respiratory Effort/Chest Expansion: normal.������ Auscultation: Clear to auscultation bilaterally
Gastrointestinal: abdomen not tender, no distension, normal abdominal bowel sounds
Genitourinary: No Lu
Extremities: Edema: None Cyanosis: None Trophic changes: None
Neurology Exam:
Orientation: Alert, Oriented to self, Time, Place
Memory: Intact for immediate medical concern
Comprehension: Intact
Two step command: Intact
Naming: Intact
Cranial Nerves:
�� CNII: Pupillary light reflex: Intact��� Visual Field: Intact
�� CN III, IV, : Extraocular muscles: Intact
�� CN V: Facial Sensation at Forehead: Intact , Maxilla: Intact, Mandible: Intact
�� CN VII: Facial movement: Symmetric
�� CN VIII: Hearing: Normal
�� CN IX/X: Speech & swallow: Dysarthria, with voice position of Uvula: Midline
�� CN XI: Shoulder shrug: Weakness on the right
�� CN XII: Tongue protrusion: Midline
Sensory:
�� Light touch: Intact in bilateral upper and lower extremities
��
Reflexes:
�� Biceps: 2+ bilaterally
�� Brachioradialis: 2+ bilaterally
�� Triceps: 2+ bilaterally
�� Patellar: 2+ bilaterally
�� Achilles: absent bilaterally
�� Babinski: no response bilaterally
�� Clonus: None
�� Matthew: Negative bilaterally
Cerebellar: Dysmetria/Ataxia: right, moderate incoordination with [id number]
Musculoskeletal:
Motor: (Manual muscle scale 0-5)
Muscle SA EF WE EE FF FA HF KE DF EHL PF
Right� 4 4 4 4 4 4 4 1 1 2
Left 5 5 5 5 5 5 5 5 5 5 5
Tone: Normal in all extremities
Range of Motion: Passively within normal limits in all extremities
Diagnostic as per HPI
MRI of brain -08/11/2025
1. 1.2 cm ACUTE ISCHEMIC INFARCT in the PERIVENTRICULAR WHITE MATTER of the POSTERIOR LEFT FRONTAL LOBE.
2. 9 mm subacute ischemic infarct in the right frontal lobe henry radiata (probably close to 10 days old).
3. Mild diffuse cerebral and cerebellar volume loss.
4. Small disc herniation at C3/C4 causing minimal spinal cord compression.
CT SCAN OF CHEST 08/12/25
There are multiple small pulmonary nodules seen bilaterally, none larger than 5 mm.
Series of 201, left side image 17, 25, 36: Right side image 29, 31, 34, 35, 41
There is no focal consolidation. There is no pleural effusion. There is mildly enlarged lymph nodes in the mediastinum. The javy and is more difficult to assess without contrast.
There is no the thyroid is unremarkable. There is no axillary adenopathy. There is no pericardial effusion.
The visualized upper abdomen is unremarkable.
There is mild scoliosis with curvature towards the right. There are degenerative changes in the thoracic spine. There our anterior osteophytes. There is degenerative disc disease.
IMPRESSION:
There are multiple small pulmonary nodules. If there are previous for comparison? If not see Fleischner recommendations
There are mildly enlarged lymph nodes. These would be better assessed with contrast
Assessment 60 year old male with PMH of HTN , HLD, Non insulin dependent DM with ataxia and weakness found to have left posterior frontal lobe and acute right frontal lobe henry radiata infarcts, incidental pulmonary nodules was started on dual
antiplatelet therapy. Seen by cardiology for abnormal EKG. Recommended outpatient 2 weeks monitoring
Plan
PM&R PT/OT to increase independence with ADLs, improve balance, coordination, endurance, strength, mobility, community reintegration, decreased burden of care on others and family education.
CVA: 9 mm subacute ischemic infarct in the right frontal lobe henry radiata and left posterior frontal lobe. Plavix and ASA x 21 days with Aspirin life long, statin, and blood pressure control (SBP less than 180 and diastolic less than 100 to
participate with therapy for ischemic stroke). Continue to monitor neurologic status.
Right dominant hemiparesis: High risk for falls and sliding out of chair/bed. Safety reinforced.
- Avoid using affected arm to help lift or pull patient as this will cause trauma to the shoulder.
Right foot drop: Recommending Multi-Podus boot
Dysarthria: Speech evaluation
Cognitive Impairment: speech evaluation
Hypertensive : Cardizem ER 240mg daily, lisinopril 20 mg daily, hydrochlorothiazide 25 daily, labetalol 10 mg IV Q6 as needed
HLD: Atorvastatin 40 mg every afternoon
NIDDM: accu-check, sliding scale, Aspart 13 units AC, Lantus 30 mg bedtime
Pulmonary Nodules: incidental findings with enlarged lymph nodes. OP follow up with pulmonary
Psych: Psychology consult. Monitor mood, adjust medications as needed.
GI prophylaxis: Pantoprazole 40 mg daily
Skin: monitor for pressure sores/rashes/lesions.
FEN: Diabetic diet,
Pain: acetaminophen as needed.
Bowel: Colace and Senna, PRN bisacodyl. Miralax
Bladder: Time void, PVRs, PRN straight cath.
DVT Prophylaxis: mechanical and Heparin q 8 hours
Pulmonary: Incentive spirometry
Safety: Continue to reinforce assistance with all transfers
Discharge disposition: Would benefit from acute inpatient rehabilitation once medically cleared clear for PT/OT to increase independence with ADLs, improve balance, coordination, endurance, strength, mobility, community reintegration, decreased
burden of care on others and family education.
Recommendations
CVA: 9 mm subacute ischemic infarct in the right frontal lobe henry radiata and left posterior frontal lobe. Plavix and ASA x 21 days with Aspirin life long, statin, and blood pressure control (SBP less than 180 and diastolic less than 100 to
participate with therapy for ischemic stroke). Continue to monitor neurologic status.
Right dominant hemiparesis: High risk for falls and sliding out of chair/bed. Safety reinforced.
- Avoid using affected arm to help lift or pull patient as this will cause trauma to the shoulder.
Right foot drop: Recommending Multi-Podus boot
Bowel: Colace and Senna, PRN bisacodyl. Miralax
Bladder: Time void, PVRs, PRN straight cath.
Thank you for allowing me to care for your patient. Please contact me with any questions or concerns.
Consultation
-
Date/Time Consultation Requested: 08/13
Date/Time Consultation Performed: 08/14
Performing Provider: camila rhodes/Dr. Ahmadi
Reason for Consultation: stroke like symptoms

Documented by User: Taras Ahmadi MD 08/14/25 21:23
Consultation - Medical
-
Referral: Dr. Dorsey
Chief Complaint: Stroke
History of Present Illness: 60-year-old male with PMH of( [id number]-[id number] diabetes, hypertension, hyperlipidemia, obesity) presenting to [facility] on 08/10/2025 for evaluation of right sided ataxia and dizziness. He reported to have lost his job
a year and a half ago and has stopped taking his blood pressure and diabetic medications due to lack of insurance. his blood pressure has been running high at home in the 200s over 100 as he was previously on lisinopril and hydrochlorothiazide.
Patient was seen by cardiology in 2021 for HTN, ZAMUDIO and dizziness. At that time BP and blood sugar control were recommended with follow-up in 6 months He has been under a great deal of stress, could not afford to see his PCP or fill his
prescriptions. He has been exercising by taking walks, but on the day of admission he felt a lack of coordination in his right hand and leg and so his family told him to go to the ER.
In the ED, he was afebrile, blood pressure was 230/140 with a pulse rate of 93 and was satting 98% on room air. ECG showed sinus rhythm at a rate of 95 with T wave inversions in the lateral leads. CT of the head and CT angio shows no acute acute
intracranial hemorrhage. Small localized focus of subtle diminished attenuation within the periventricular white matter adjacent to the posterior body left lateral ventricle. Possible mild chronic ischemic change versus age indeterminant white
matter lacunar infarct. Recommend follow-up MRI. CTA shows no large vessel occlusion dissection or aneurysm.
CTA head and neck:
No acute intracranial hemorrhage.
Small localized focus of subtle diminished attenuation within the periventricular white matter adjacent to the posterior body left lateral ventricle. Possible mild chronic ischemic change versus age indeterminant white matter lacunar infarct.
Recommend follow-up MRI. Cervical and intracranial major regional vasculature appears patent without evidence for hemodynamically significant stenosis or occlusion. Normal variant hypoplasia of the left anterior cerebral artery A1 segment.
No [place] of [place] region aneurysm or stenosis.
MRI of the brain suggest left acute frontal lobe and subacute ischemic infarct in the right frontal lobe henry radiata. Neurology recommended Plavix and aspirin x 21 days. Patient not candidate for TNK on admission due to out of window for
treatment.
Cardiology consulted for abnormal EKG . Ideally, cardiology would like him to wear a 2-week outpatient CAM monitor which was priced with [id number] cost of $325. bag worker Amber contacted who will look into it. Working on better BP
control.
Abnormal EKG
Patient without any symptoms of angina. He has T wave changes now inversions compared to nonspecific changes in the past and anterior lateral leads. EKG shows persistent T wave abnormalities in the anterior and as well as lateral leads.. Unclear
if related to uncontrolled hypertension. Troponins are negative.
Echo shows normal EF and moderate LVH. No wall motion abnormality. Sinus tachycardia-add TSH. Continue with Cardizem.
Past Medical History: qlq-bxwzzox-wonpvexjd diabetes, hypertension, hyperlipidemia, obesity
Past Surgical History: Right upper extremity tendon repair and umbilical hernia repair
Family history: Not pertinent
Social History
Tobacco: Non-smoker
Alcohol: None
Drug: None
Social History
Functional Level Premorbidity: Independent for all activities.
Current Functional Level: Grooming, toileting, upper body care- Min Assist, lower body care- Dependent
Live With: spouse and son
24-hour assistance available:
Number of floors: multi level
# steps to enter: 2
# steps to second floor: FF
Potential First Floor Set Up: yes
Driving: yes
Occupation: unemployed- lost job 1.5 year ago
Allergies :
Allergy/AdvReac Type Severity Reaction Status Date / Time
No Known Allergies Allergy Verified 08/10/25 19:52
Medications:
Active Current Visit Medication List
Category Date Time Status
Acetaminophen [Tylenol/Feverall] Med 08/11/25 01:55 Active
650 mg RECTAL Q4HPRN PRN
Acetaminophen [Tylenol] Med 08/11/25 01:55 Active
650 mg PO Q4HPRN PRN
Aspirin Chewable [Low Strength Aspirin] Med 08/11/25 08:00 Active
81 mg PO DAILY
Atorvastatin [Lipitor] Med 08/11/25 18:00 Active
40 mg PO QPM
Clopidogrel Bisulfate [Plavix] Med 08/11/25 08:00 Active
75 mg PO DAILY
Dextrose 50%-Water [Dextrose 50% Syringe] Med 08/13/25 09:00 Active
12.5 grams IV [id number] PRN
Diltiazem Extended Release [Cardizem Cd] Med 08/14/25 08:00 Active
240 mg PO DAILY
Flush (0.9% Sodium Chloride) [Flush (Nss)] Med 08/11/25 03:00 Active
See Dose Instructions IV PER PROTOCOL
Glucagon [GlucaGen] Med 08/13/25 09:00 Active
1 mg IM PRN PRN
Heparin Med 08/11/25 09:45 Active
5,000 units SC Q8
Insulin Aspart Corrective Low [Novolog Flexpen-Low Med 08/13/25 08:00 Active
Resistance]
See Protocol SC AC
Insulin Aspart Pen [Novolog Flexpen] Med 08/13/25 16:30 Active
13 units SC AC
Insulin Glargine Lantus [Lantus] 28 units Med 08/13/25 22:00 Active
Subcutaneous Insulin Syringe [Syringe-Insulin] 0 unit
SC HS
Labetalol HCl [Trandate] Med 08/12/25 07:49 Active
10 mg IV Q6HPRN PRN
Lisinopril [Zestril] Med 08/14/25 08:00 Active
20 mg PO DAILY
Pantoprazole [Protonix] Med 08/13/25 08:00 Active
40 mg PO DAILY
Polyethylene Glycol Powder [Miralax] Med 08/11/25 08:00 Active
17 grams PO DAILY
Prochlorperazine [Compazine] Med 08/11/25 08:54 Active
10 mg IV Q6HPRN PRN
Review Of Systems
-
History Source: Patient
All other systems: Negative unless noted
Constitutional: Reports Fatigue
Eye: Reports No Symptoms
EENT: Reports No Symptoms
Respiratory: Reports No Symptoms
Cardiac: Reports No Symptoms
Abdomen/GI: Reports No Symptoms
: Reports No Symptoms
Musculoskeletal: RLE weakness and foot drop
Integumentary: Reports No Symptoms
Neurological: Reports Weakness
Psych: Reports No Symptoms
Endocrine: Reports No Symptoms
Hematologic/Lymphatic: Reports No Symptoms
Immunology: Reports No Symptoms
Vital Signs:
Temp Pulse Resp BP Pulse Ox
97.6 F 86 20 149/91 98
08/14/25 11:40 08/14/25 14:20 08/14/25 11:40 08/14/25 14:20 08/14/25 11:40
Height 6 ft 1 in
Actual Weight 127.6 kg
Body Mass Index (BMI) 37.1
Physical Exam:
General Appearance/Observation: Well-developed, well-nourished male in no apparent distress.
Pain/Comfort Assessment: Denies
Mood/Affect: Appropriate
Integumentary/Operative Site:
�� Pressure Ulcer evaluation: absent over heels
Eyes: Conjunctiva/Lids: normal ��� Pupils: pupils equal round and reactive to light and Accommodation
Ears/Nose/Throat: oral mucosa moist,� throat clear.������������ Lips/Teeth/Gums: normal
Neck: No muscle spasm or tenderness
Cardiovascular: Heart: regular, no murmur
Pulses: dorsalis pedis 2+ bilaterally
Respiratory: Respiratory Effort/Chest Expansion: normal.������ Auscultation: Clear to auscultation bilaterally
Gastrointestinal: abdomen not tender, no distension, normal abdominal bowel sounds
Genitourinary: No Lu
Extremities: Edema: None Cyanosis: None Trophic changes: None
Neurology Exam:
Orientation: Alert, Oriented to self, Time, Place
Memory: Intact for immediate medical concern
Comprehension: Intact
Two step command: Intact
Naming: Intact
Cranial Nerves:
�� CNII: Pupillary light reflex: Intact��� Visual Field: Intact
�� CN III, IV, : Extraocular muscles: Intact
�� CN V: Facial Sensation at Forehead: Intact , Maxilla: Intact, Mandible: Intact
�� CN VII: Facial movement: Symmetric
�� CN VIII: Hearing: Normal
�� CN IX/X: Speech & swallow: Dysarthria, with voice position of Uvula: Midline
�� CN XI: Shoulder shrug: Weakness on the right
�� CN XII: Tongue protrusion: Midline
Sensory:
�� Light touch: Intact in bilateral upper and lower extremities
��
Reflexes:
�� Biceps: 2+ bilaterally
�� Brachioradialis: 2+ bilaterally
�� Triceps: 2+ bilaterally
�� Patellar: 2+ bilaterally
�� Achilles: absent bilaterally
�� Babinski: no response bilaterally
�� Clonus: None
�� Matthew: Negative bilaterally
Cerebellar: Dysmetria/Ataxia: right, moderate incoordination with [id number]
Musculoskeletal: Motor: (Manual muscle scale 0-5)
Muscle SA EF WE EE FF FA HF KE DF EHL PF
Right� 4 4 4 4 4 4 3 2+ 1 1 2
Left 5 5 5 5 5 5 4 5 5 5 5
Tone: Normal in all extremities
Range of Motion: Passively within normal limits in all extremities
Diagnostic as per HPI
MRI of brain -08/11/2025
1. 1.2 cm ACUTE ISCHEMIC INFARCT in the PERIVENTRICULAR WHITE MATTER of the POSTERIOR LEFT FRONTAL LOBE.
2. 9 mm subacute ischemic infarct in the right frontal lobe henry radiata (probably close to 10 days old).
3. Mild diffuse cerebral and cerebellar volume loss.
4. Small disc herniation at C3/C4 causing minimal spinal cord compression.
CT SCAN OF CHEST 08/12/25
There are multiple small pulmonary nodules seen bilaterally, none larger than 5 mm.
Series of 201, left side image 17, 25, 36: Right side image 29, 31, 34, 35, 41
There is no focal consolidation. There is no pleural effusion. There is mildly enlarged lymph nodes in the mediastinum. The javy and is more difficult to assess without contrast.
There is no the thyroid is unremarkable. There is no axillary adenopathy. There is no pericardial effusion.
The visualized upper abdomen is unremarkable.
There is mild scoliosis with curvature towards the right. There are degenerative changes in the thoracic spine. There our anterior osteophytes. There is degenerative disc disease.
IMPRESSION:
There are multiple small pulmonary nodules. If there are previous for comparison? If not see Fleischner recommendations
There are mildly enlarged lymph nodes. These would be better assessed with contrast
Assessment
60 y/o R handed M PMH (HTN, HLD, Non insulin dependent DM with ataxia and weakness) with 08/10/25 left posterior frontal lobe and acute right frontal lobe henry radiata infarcts with ADL and ambulatory dysfunction.
Plan
PM&R PT/OT to increase independence with ADLs, improve balance, coordination, endurance, strength, mobility, community reintegration, decreased burden of care on others and family education.
CVA: 9 mm subacute ischemic infarct in the right frontal lobe henry radiata and left posterior frontal lobe. Plavix and ASA x 21 days with Aspirin life long, statin, and blood pressure control (SBP less than 180 and diastolic less than 100 to
participate with therapy for ischemic stroke). Continue to monitor neurologic status.
Right dominant hemiparesis: High risk for falls and sliding out of chair/bed. Safety reinforced.
- Avoid using affected arm to help lift or pull patient as this will cause trauma to the shoulder.
- Recommending right Multi-Podus boot
Dysarthria: Speech evaluation
Cognitive Impairment: speech evaluation
Hypertensive : Cardizem ER 240mg daily, lisinopril 20 mg daily, hydrochlorothiazide 25 daily, labetalol 10 mg IV Q6 as needed
HLD: Atorvastatin 40 mg every afternoon
NIDDM: accu-check, sliding scale, Aspart 13 units AC, Lantus 30 mg bedtime
Pulmonary Nodules: incidental findings with enlarged lymph nodes. OP follow up with pulmonary
Psych: Psychology consult. Monitor mood, adjust medications as needed.
GI prophylaxis: Pantoprazole 40 mg daily
Skin: monitor for pressure sores/rashes/lesions.
FEN: Diabetic diet,
Pain: acetaminophen as needed.
Bowel: Colace and Senna, PRN bisacodyl. Miralax
Bladder: Time void, PVRs, PRN straight cath.
Morbid obesity: Continue to on awake counselor patient about diet adjustments to control obesity. Body habitus and increased force to move body and extremities causes further difficulty with functional tasks.
DVT Prophylaxis: mechanical and Heparin q 8 hours
Pulmonary: Incentive spirometry
Safety: Continue to reinforce assistance with all transfers
Discharge disposition: Would benefit from acute inpatient rehabilitation once medically cleared clear for PT/OT to increase independence with ADLs, improve balance, coordination, endurance, strength, mobility, community reintegration, decreased
burden of care on others and family education.
Attending Statement: I saw and examined the patient today.� Reviewed care plan with patient and physician talent acquisition assistant.� I agree with the above subjective and physical exam, and plan as documented by LISBETH Rhodes with adjustments made as necessary.
A total of 60 minutes were spent with the patient preparing for the evaluation, obtaining history, performing examination and evaluation, counseling, data review, case management, care coordination, customs and border protection inspector, and EMR documentation.
Recommendations
CVA: 9 mm subacute ischemic infarct in the right frontal lobe henry radiata and left posterior frontal lobe. Plavix and ASA x 21 days with Aspirin life long, statin, and blood pressure control (SBP less than 180 and diastolic less than 100 to
participate with therapy for ischemic stroke). Continue to monitor neurologic status.
Right dominant hemiparesis: High risk for falls and sliding out of chair/bed. Safety reinforced.
- Avoid using affected arm to help lift or pull patient as this will cause trauma to the shoulder.
Right foot drop: Recommending Multi-Podus boot
Bowel: Colace and Senna, PRN bisacodyl. Miralax
Bladder: Time void, PVRs, PRN straight cath.
Thank you for allowing me to care for your patient. Please contact me with any questions or concerns.
Consultation
-
Date/Time Consultation Requested: 08/13/25
Date/Time Consultation Performed: 08/14/25
Requesting Provider: Kai Dorsey
Performing Provider: Camila Rhodes/Dr. Ahmadi
--- NOTE | 2025-08-14 09:56 | W.PN.HOSP.TC ---
Today's Communication/Plan
-
Increase lisinopril. Continue with Cardizem.
DC planning.
Assessment / Plan
Assessment / Plan
IMPRESSION:
This is a 60-year-old with uncontrolled hypertension secondary to noncompliance with medications, hyperlipidemia, mpu-vlstzap-yndstijng diabetes not currently on medical management presenting with acute onset of ataxia and subtle weakness of the
right side of his body. Ataxia appears to be related to the right side as well. Suspect possible cerebellar infarct however CT scan seems to show possible age-indeterminate lacunar infarct on the left. He has uncontrolled blood pressure today
230s over 130s in the ED.
PLAN:
Hypertensive emergency -patient with hypertensive emergency given elevated blood pressure with endorgan changes and neurological symptom.
- Now off Cardene drip
- Uptitrated Cardizem today.
- Uptitrated lisinopril today.
- If still jet tachycardic may be switch back to amlodipine and add a beta-margo.
Acute ischemic cerebral infarct - out of window for TNK on admission
- Patient with right-sided weakness.
- CTA head and neck shows no significant stenosis.
- Unclear if this is related to his fully controlled hypertension, diabetes.
- Telemetry shows mostly sinus tach versus atrial tach but no atrial fibrillation. Ask cardiology to review. Echo pending.
- Continue to modify risk factors-initiated on scheduled antihypertensives. Started on insulin along with metformin.
- Also initiated on dual antiplatelet agent by neurology.
Continue with PT OT-acute rehab recommended-consult physiatry.
Also initiated on statins.
Diabetes -previously on Trulicity and oral agent metformin
-Sliding scale insulin for now
-A1c 9.0
- Restarted metformin. Also initiated on insulin to help with glycemic control in acute setting. Diabetic nurse practitioner following.
Abnormal EKG
Patient without any symptoms of angina. He has T wave changes now inversions compared to nonspecific changes in the past and anterior lateral leads. EKG shows persistent T wave abnormalities in the anterior and as well as lateral leads.. Unclear
if related to uncontrolled hypertension.
Troponins are negative.
Echo shows normal EF and moderate LVH. No wall motion abnormality.
Appreciate cardiology input-no interventions warranted. 2-week Holter monitor as an outpatient recommended.
Sinus tachycardia-add TSH. Continue with Cardizem.
Abnormal creatinine-suspect chronic kidney disease with albuminuria. Check protein creatinine ratio .no recent baseline. Continue to follow. No acidosis or hyperkalemia. Continue to optimize treatment of hypertension and diabetes.
Left upper lobe lung abnormality-dedicated CT chest requested by pulmonary. CT chest shows multiple small pulmonary nodules seen bilaterally, none larger than 5 mm. Follow-up with pulmonary as outpatient.
Hypomagnesemia-replete
DVT progresses�SCDs for now
CODE STATUS�full code
Discussed with case management-Medicaid application reviewed and a [facility] has a place for him.
DC in am if BP stable
Anticipated Discharge: Within 24 hours
Subjective/Interval History
-
Date of Service: August 14, 2025
Improvement with right-sided strength. No new symptoms. Able to ambulate to the bathroom with walker
Objective Data
-
Vital Signs:
Vital Signs
Temp Pulse Resp BP Pulse Ox
97.3 F 103 18 166/110 97
08/14/25 02:55 08/14/25 08:10 08/14/25 08:10 08/14/25 08:10 08/14/25 08:10
I&O
08/13/25 08/14/25 08/15/25
06:59 06:59 06:59
Intake Total 625.0 / 625.0 720 / 720
Output Total 125 / 125
Balance 500.0 / 500.0 720 / 720
Physical Exam
-
General: Comfortable
Respiratory: Non Labored Respirations; Negative Accessory Resp Muscle Use
Cardiac: Regular Rhythm, S1/S2 and Tachycardic
GI: Soft
Neuro: AO x 3; Negative No Motor Deficits (Right hemiparesis before)
Psych: Calm; Negative Confused
--- NOTE | 2025-08-14 11:35 | CM ---
CM reviewed chart, spoke with Radha at [facility]- patients [place] application cleared- able to accept patient tomorrow pending medical stability- concerned about patients BP.
Patient seen bedside, aware of approval and likely d/c to [facility] tomorrow.
Update to Hospitalist.
CM will continue to follow for all d/c planning needs.
Plan; likely d.c to [facility] tomorrow 08/15
[facility]
Report: [phone]
[2025-08-14 11:37] LABS: TSH 0.98 uIU/ml (0.47-4.68)
[2025-08-14 11:58] LABS: Glucose - Point of Care 161 mg/dl (70-99)
[2025-08-14] MEDS: NOVOLOG FLEXPEN-LOW RESISTANCE 1 UNITS SC (12:08)
[2025-08-14] MEDS: TRANDATE 10 MG IV ×2 (12:09→22:48)
--- NOTE | 2025-08-14 12:36 | W.PN.CARDCBS ---
Addendum entered and electronically signed by Taras Granados MD 08/14/25 18:53:
He has been hypertensive. He offers no complaints.
Awaiting transfer to [facility] pending better blood pressure control
Medications: Reviewed
He offers no complaints, children at bedside
160/111, pulse 94, head neck exam unremarkable, lungs are clear, regular rate and rhythm without murmurs gallops, abdomen benign, extremities without substantial clubbing cyanosis or edema right hemiparesis
Labs: Reviewed
Impression:
See note below. Reviewed in detail and agree, unless otherwise specified.
Right frontal CVA
Hypertension
Diabetes
Hyperlipidemia
Noncompliance related to loss of insurance
Dilated aortic root
Plan:
Overall relatively stable, but blood pressure needs improvement. Hydrochlorothiazide is a good addition, if needed we could consider transitioning to beta-margo and amlodipine from diltiazem.
Original Note:
Today's Communication / Plan
-
start HCTZ
approved for [facility]
Impression / Plan
-
PCP: Rachel Solitario PA-C
Cardiology: Dr. GLORIA Granados
Impression:
Admitted with CVA 08/10/2025
Acute left frontal lobe and subacute right frontal lobe CVA but MRI of brain 08/11/2025
Abnormal ECG
HTN emergency on admission
h/o HTN
DM2
Abnormal CT scan with mediastinal lymphadenopathy and pulmonary nodules
Medication noncompliance due to lack of health insurance
Echo 08/11/2025: EF 69%, moderate LVH, no WMA, normal RV size and function, mildly dilated aortic root, Sinus of valsalva measures 4.5 cm, sinotubular junction measures 4.1 cm, normal ascending aorta.
Plan:
-admitted with CVA and cardiology consulted for abnormal ECG. Patient was seen by cardiology in the office in 2021 for HTN and symptoms of ZAMUDIO and dizziness. At that time patient was recommended tighter BP and blood sugar control and to follow-up
with our office in 6 months, but he did not do that. Last time patient saw his PCP was in 2022. In the last few years the patient has lost his job and health insurance and has been under a great deal of stress. Patient has been having HTN at home
with BP of 200/100 at times, but he could not afford to see his PCP or to fill prescriptions. He has been exercising by taking walks, but on the day of admission he had trouble with his usual walk and then felt a lack of coordination in his right
hand and so he came to the ER. CT of the head was negative for intracranial bleed, but there was concern for mediastinal adenopathy and nodules. Patient was admitted and subsequent MRI of the brain showed acute left frontal lobe and subacute right
frontal lobe CVAs. Family is waiting to hear from neurology. In the meantime cardiology has been consulted for abnormal ECG that was first seen on admission on 08/10/2025, ECG shows SR with anterolateral T wave changes that have improved on my
review of subsequent ECGs. Patient denies chest pain or SOB. Patient had symptoms of dyspnea and fatigue when he was seen back in 2021 and he was ordered stress echo and echo at that time which he never completed.
-ECG from admission on 08/10/2025 SR with anterolateral T wave inversions and on most recent ECG from 08/11/2025 also reviewed by me the anterolateral T wave changes have improved and he remains in SR.
-Telemetry reviewed by me: Normal sinus rhythm 80s-110s, occasional sinus tachycardia to 120s
-Patient with abnormal ECG, but echo report reviewed and summarized above shows preserved EF without WMA. Suspect that ECG changes could have been related to HTN emergency or CVA. Patient is not a candidate for stress test or cardiac cath at this
time due to acute and subacute CVA, but would recommend eventual outpatient stress test
-MRI of the brain suggest left acute and right subacute CVA. No evidence of atrial arrhythmia on telemetry thus far. Await input from neurology, but suspect they will want a long-term outpatient athletic monitor.
-Ideally we would like him to wear a 2-week outpt CAM monitor. I priced this and out an lyu-wk-nqlola cost would be $325. I contacted web content & social media manager Amber who will look into it.
-HTN emergency on admission with improved BP following Cardene gtt which is now stopped.
-Blood pressure remains elevated today and BPs up to 180s/120s and pt receiving PRN doses Labetolol
-on 08/13 Diltiazem uptitrated to 240 mg daily and lisinopril uptitrated to 20 mg daily.
-BPs remain elevated 08/14. Start HCTZ 25 mg daily - I ordered with dose now.
-watch creat. has been 1.4-1.5 this admission
- I reviewed last office visit with PCP which was in 2022 and at that time patient was on lisinopril HCTZ with extra lisinopril 20 mg daily so total of lisinopril 40 mg daily. Was also on amlodipine 5 mg daily which he tolerated.
-Calcium channel margo was switched from amlodipine to Cardizem during this admission to help with rate control as he was initially tachycardic.
-if BP not improved with diuretic, consider changeCCB back to amlodipine and add beta margo as additional antihypertensive and rate lowering med
-New to aspirin and Plavix for CVA
-Case management is helping patient apply for Medicaid.
-pt approved for [facility], likely will go tomorrow as long as HTN better controlled
discussed w/ pt, son, daughter at bedside.
Progress Note - Manager Requirements
Subjective
Date of Service: August 14, 2025
BP remains elevated despite med uptitration
no headaches, no CP, SOB
walking with walker in peter
Objective
Labs:
08/12/25 04:02
08/12/25 05:05
Labs
Hgb 15.3 g/dL (13.0-18.0) 08/12/25 04:02
Hct 42.7 % (39.0-52.0) 08/12/25 04:02
Plt Count 245 10^3/uL (130-400) 08/12/25 04:02
PT 13.8 Sec (11.4-14.6) 08/11/25 04:40
INR 1.03 08/11/25 04:40
APTT 25.7 Sec (23.4-35.0) 08/11/25 04:40
Sodium 138 mmol/L (135-145) 08/12/25 05:05
Potassium 4.1 mmol/L (3.5-5.1) 08/12/25 05:05
BUN 28 mg/dl (9-20) H 08/12/25 05:05
Creatinine 1.4 mg/dL (0.7-1.3) H 08/12/25 05:05
Glucose 210 mg/dl (70-99) H 08/12/25 05:05
Vital Signs and I&O:
Vital Signs
Temp Pulse Resp BP Pulse Ox
97.6 F 110 20 186/84 98
08/14/25 11:40 08/14/25 11:40 08/14/25 11:40 08/14/25 12:09 08/14/25 11:40
Vital Signs
Temp Pulse Resp BP Pulse Ox
97.6 F 110 20 186/84 98
08/14/25 11:40 08/14/25 11:40 08/14/25 11:40 08/14/25 12:09 08/14/25 11:40
Intake & Output
08/12/25 08/13/25 08/14/25 08/15/25
06:59 06:59 06:59 06:59
Intake Total 900.0 / 912.5 625.0 / 625.0 720 / 720
Output Total 1300 / 1300 125 / 125
Balance -400.0 / -387.5 500.0 / 500.0 720 / 720
Physical Exam
Physical Exam
GEN: No distress, awake, Ox3
HEENT: supple, anicteric, mmm
LUNGS: CTA, no wheezes/rales
CV: Reg, S1/S2, no murmur
ABD: soft, BS+, NT/ND
EXT: No edema
NEURO: Gross non-focal
SKIN: No rash
--- NOTE | 2025-08-14 13:24 | PTOTSP ---
Speech-Language Evaluation
Pt seen in room for cognitive-communication assessment given recent MRI results (acute ischemic infarct in left frontal lobe). Pt scored 26/29 on Coleman Cognitive Assessment (MOCA) (Visuospatial - cube copy not administered as pt stated object
would be too difficult to copy with nondominant left hand). Points deducted on delayed recall (3/5) and language fluency (0/1). Pt denies any recent cognitive-communication changes. No dysarthria, anomia, or apraxia of speech observed.
Pt denies dysphagia. Per pt and RN report, pt managing regular solids and thin liquids with no dysphagia.
Recommendation:
1. Discharge from speech-language therapy
[2025-08-14] MEDS: ORETIC 25 MG PO (13:36)
--- NOTE | 2025-08-14 16:14 | W.PN.UPDATE ---
Addendum entered and electronically signed by Taras Granados MD 08/14/25 18:53:
Please disregard update note below, placed on wrong chart in error
Original Note:
Update Note
Progress Note Update
spoke with daughter Kyle [phone] and updated on his condition, he has converted to NSR and is diuresing. Answered questions. 7 min call.
[2025-08-14 16:55] LABS: Glucose - Point of Care 233 mg/dl (70-99)
[2025-08-14] MEDS: LIPITOR 40 MG PO (17:03)
[2025-08-14 21:35] LABS: Glucose - Point of Care 114 mg/dl (70-99)
[2025-08-14] MEDS: LANTUS 0.3 UNITS SC (21:42)
[2025-08-15] VITALS (7 sets, daily range): BP systolic 132–182; BP diastolic 78–113
[2025-08-15] MEDS: TYLENOL 650 MG PO (01:44)
[2025-08-15 07:57] LABS: Blood Urea Nitrogen 35 mg/dl (9-20); Calcium 9.5 mg/dl (8.4-10.2); Carbon Dioxide 30 mmol/L (22-30); Chloride 102 mmol/L (98-107); Estimated Creatinine Clearance 58 ml/min; Glucose 162 mg/dl (70-99); Potassium 4.3 mmol/L (3.5-5.1); Sodium 138 mmol/L (135-145); eGFR 39.89
[2025-08-15 08:13] LABS: Glucose - Point of Care 213 mg/dl (70-99)
[2025-08-15] MEDS: MIRALAX 17 GRAMS PO (08:57)
[2025-08-15] MEDS: PROTONIX 40 MG PO (08:58)
[2025-08-15] MEDS: CARDIZEM CD 240 MG PO (08:58)
[2025-08-15] MEDS: PLAVIX 75 MG PO (08:58)
[2025-08-15] MEDS: ORETIC 25 MG PO (08:58)
[2025-08-15] MEDS: HEPARIN 5000 UNITS SC ×2 (08:59→16:55)
[2025-08-15] MEDS: LOW STRENGTH ASPIRIN 81 MG PO (08:59)
[2025-08-15] MEDS: ZESTRIL 20 MG PO (08:59)
[2025-08-15] MEDS: NOVOLOG FLEXPEN-LOW RESISTANCE 2 UNITS SC (09:01)
[2025-08-15] MEDS: NOVOLOG FLEXPEN 13 UNITS SC ×3 (09:02→18:05)
--- NOTE | 2025-08-15 11:04 | W.PN.HOSP.TC ---
Today's Communication/Plan
-
Consult nephrology.
Check ultrasound of the renal tract.
Assessment / Plan
Assessment / Plan
IMPRESSION:
This is a 60-year-old with uncontrolled hypertension secondary to noncompliance with medications, hyperlipidemia, ngy-yxbytxn-khoqmgtiy diabetes not currently on medical management presenting with acute onset of ataxia and subtle weakness of the
right side of his body. Ataxia appears to be related to the right side as well. Suspect possible cerebellar infarct however CT scan seems to show possible age-indeterminate lacunar infarct on the left. He has uncontrolled blood pressure today
230s over 130s in the ED.
PLAN:
Hypertensive emergency -patient with hypertensive emergency given elevated blood pressure with endorgan changes and neurological symptom.
- Now off Cardene drip
- Initiated and uptitrated Cardizem on this admission.
- Initiated back on his lisinopril and uptitrated to his home dose of 20 mg.
- Hydrochlorothiazide was reintroduced by cardiology yesterday
- Blood pressure still not under goal. Might consider switching lisinopril and hydrochlorothiazide with worsening ESTER. Consult nephrology.
Acute ischemic cerebral infarct - out of window for TNK on admission
- Patient with right-sided weakness.
- CTA head and neck shows no significant stenosis.
- Unclear if this is related to his fully controlled hypertension, diabetes.
- Telemetry shows mostly sinus tach versus atrial tach but no atrial fibrillation. Ask cardiology to review. Echo pending.
- Continue to modify risk factors-initiated on scheduled antihypertensives. Started on insulin along with metformin.
- Also initiated on dual antiplatelet agent by neurology.
Continue with PT OT-acute rehab recommended-consult physiatry.
Also initiated on statins.
Diabetes -previously on Trulicity and oral agent metformin
-Sliding scale insulin for now
-A1c 9.0
- Restarted metformin. Also initiated on insulin to help with glycemic control in acute setting. Diabetic nurse practitioner following.
Abnormal EKG
Patient without any symptoms of angina. He has T wave changes now inversions compared to nonspecific changes in the past and anterior lateral leads. EKG shows persistent T wave abnormalities in the anterior and as well as lateral leads.. Unclear
if related to uncontrolled hypertension.
Troponins are negative.
Echo shows normal EF and moderate LVH. No wall motion abnormality.
Appreciate cardiology input-no interventions warranted. 2-week Holter monitor as an outpatient recommended.
Sinus tachycardia-TSH normal. Continue with Cardizem.
Abnormal creatinine on presentation-suspect chronic kidney disease with albuminuria.
ESTER-elevated creatinine noted since admission. Suspect secondary to hemodynamics and may be medication. Check bladder scan and renal ultrasound. Consult nephrology.
Left upper lobe lung abnormality-dedicated CT chest requested by pulmonary. CT chest shows multiple small pulmonary nodules seen bilaterally, none larger than 5 mm. Follow-up with pulmonary as outpatient.
Hypomagnesemia-replete
DVT progresses�SCDs for now
CODE STATUS�full code
Accepted to [facility]. Await optimization of blood pressure prior to discharge.
Anticipated Discharge: 24 - 48 hours
Subjective/Interval History
-
Date of Service: August 15, 2025
Disturbed sleep because of interruptions.
Slow improvement in the right sided weakness but no new neurological symptoms.
Denies any urinary retention symptoms. Some frequency noted. Patient is on hydrochlorothiazide.
No dysuria.
Denies any shortness of breath or chest pain.
Objective Data
-
Labs:
Laboratory Results
08/15/25
06:29
Sodium 138
Potassium 4.3
Chloride 102
Carbon Dioxide 30
BUN 35 H
Creatinine 1.9 H
Glucose 162 H
Calcium 9.5
Vital Signs:
Vital Signs
Temp Pulse Resp BP Pulse Ox
97.4 F 101 18 165/113 94
08/15/25 07:55 08/15/25 07:55 08/15/25 07:55 08/15/25 07:55 08/15/25 07:55
I&O
08/14/25 08/15/25 08/16/25
06:59 06:59 06:59
Intake Total 720 / 720 1128 / 1128
Balance 720 / 720 1128 / 1128
Physical Exam
-
General: No Apparent Distress
Respiratory: Non Labored Respirations; Negative Accessory Resp Muscle Use
Cardiac: Regular Rhythm, S1/S2 and Tachycardic
Neuro: AO x 3; Negative No Motor Deficits (Right hemiparesis as before)
Psych: Calm; Negative Confused
Data Reviewed
-
Labs: Labs Reviewed by me
[2025-08-15 12:35] LABS: Glucose - Point of Care 126 mg/dl (70-99)
[2025-08-15] MEDS: NOVOLOG FLEXPEN-LOW RESISTANCE SC (12:57)
--- NOTE | 2025-08-15 13:33 | W.PN.UPDATE ---
Update Note
Progress Note Update
Not any much from a cardiology standpoint at present.
Hypertension management as per primary service, additionally nephrology has been consulted.
From a cardiac standpoint, as noted previously patient with abnormal ECG, but echo shows preserved EF without WMA. Suspect that ECG changes could have been related to HTN emergency or CVA. Patient is not a candidate for stress test or cardiac cath
at this time due to acute and subacute CVA, but would recommend eventual outpatient stress test
Please call us back if we can be of any further assistance
--- NOTE | 2025-08-15 14:48 | W.CON.NEPH ---
Consultation
-
Date/Time Consultation Requested: 08/15/25 0911
Date/Time Consultation Performed: 08/15/25 1430
Requesting Provider: Kai Bryan
Performing Provider: Lupe Poon
Reason for Consultation: ESTER
Medical History
-
Chief Complaint: Dizziness
History of Present Illness:
60-year-old male with past medical history significant for zka-bnpowai-bkxdxscwq diabetes, hypertension, hyperlipidemia, CKD3a and obesity, unable to take meds for 1.5yr due to lack of insurance presented to the emergency department on 08/10 with
with acute onset of ataxia and subtle weakness of the right side of his body. Ataxia appears to be related to the right side as well. CT scan seems to show possible age-indeterminate lacunar infarct on the left, CTA shows no large vessel occlusion
dissection or aneurysm. MRI shows 1.2cm acute ischemic infarct in periventricular area of post left frontal lobe white matter, also small subacute area in henry radiate. On admit blood pressure 230s over 130s in the ED, was on Cardene gtt
initially. Cr on admit was at 1.4 and remained stable until 08/12, no labs on 08/13, 08/14. today cr noted at 1.9 hence nephrology consulted. Also his meds have been adjusted to control BPs. He is on Lisinopril and HCTZ-started both on 08/14, remains on
cardizem for sinus tachy. He offers no cp or sob. No AYERS. NO dizziness. Able to ambulate. Vision improving slowly. He admits of taking NSAIDs 3xweekly for pain. No dysuria.
Past Medical History
GERD, HTN, Hypercholesterolemia, NIDDM, obesity
Past Surgical History: Other (Right upper extremity tendon repair) and Other (Umbilical hernia repair)
Social History
Tobacco: Non-Smoker
Alcohol: Occasional
Drug: None
Living: With Family
Employment: Not Employed
Family History
no CKD
Family History: Not Pertinent
Allergies / Home Medications
Allergy/AdvReac Type Severity Reaction Status Date / Time
No Known Allergies Allergy Verified 08/10/25 19:52
�Medication �Instructions �Recorded �Confirmed �Type
Prilosec OTC PO 1XD Gerd 08/13/25 History
Review of Systems
-
All other systems: Negative unless noted
Physical Exam
Vital Signs
Vital Signs
Temp Pulse Resp BP Pulse Ox
98.0 F 96 16 157/100 96
08/15/25 12:55 08/15/25 12:55 08/15/25 12:55 08/15/25 12:55 08/15/25 12:55
Lab Results
WBC 9.8 10^3/uL (4.8-10.8) 08/12/25 04:02
RBC 4.78 10^6/uL (4.70-6.10) 08/12/25 04:02
Hgb 15.3 g/dL (13.0-18.0) 08/12/25 04:02
Hct 42.7 % (39.0-52.0) 08/12/25 04:02
Plt Count 245 10^3/uL (130-400) 08/12/25 04:02
Sodium 138 mmol/L (135-145) 08/15/25 06:29
Potassium 4.3 mmol/L (3.5-5.1) 08/15/25 06:29
Chloride 102 mmol/L (98-107) 08/15/25 06:29
Carbon Dioxide 30 mmol/L (22-30) 08/15/25 06:29
BUN 35 mg/dl (9-20) H 08/15/25 06:29
Creatinine 1.9 mg/dL (0.7-1.3) H 08/15/25 06:29
eGFR 39.89 08/15/25 06:29
Glucose 162 mg/dl (70-99) H 08/15/25 06:29
Calcium 9.5 mg/dl (8.4-10.2) 08/15/25 06:29
Albumin 4.4 g/dl (3.5-5.0) 08/10/25 20:04
Physical Exam
General: Awake, Alert, Oriented, AOx3 and No Distress
HEENT: EOMI, Anicteric, Conjunctivae Clear and Facial Symmetry
Respiratory: Clear, Normal Excursion and Nonlabored Respirations
Cardiac: S1/S2 and Regular Rate/Rhythm
Breast: Deferred by me
Abdomen: Soft, Nontender, Nondistended and Other (obese)
Musculoskeletal: No Cyanosis and No Edema
Skin: No Rash
Neuro: Other (AAAx4, able to move all extremities)
Psych: Mood/afflect pleasant, Insight/judgement good and Appropriate
Data Reviewed
-
Labs: Labs Reviewed by me, Discussed with Patient and Discussed with Family
Assessment/Plan
-
IMP:
ESTER with CKD [id number] cr 1.4-1.5 in 2022 -W
Hypertensive emergency
Acute ischemic cerebral infarct
Diabetes -A1c9
Sinus tachycardia
Left upper lobe lung abnormality
Hypomagnesemia
Subnephrotic range proteinuria-1gm/gm of cr
HLD
Obesity
Plan:
A/w CVA and HTN emergency
ESTER-baseline 1.4-1.5
UA relatively bland with albuminuria, u PCR 1gm/gm of cr
suspect possible diabetic nephropathy
check renal US, bladder scan only 12cc
he had contrast exposure on 08/10
he was started on ACEI and HCTZ on 08/14, no hypotension noted
would check renal duplex and hodl ACEI/HCTZ for time being
will add Labetalol, and cont cardizem
could consider hydralzine if needed
also check ARR, renal art duplex
avoid nephrotoxins, including NSAIDs
labs in am tomorrow
d/w pt in detail
[2025-08-15 17:15] LABS: Glucose - Point of Care 150 mg/dl (70-99)
[2025-08-15] MEDS: NOVOLOG FLEXPEN-LOW RESISTANCE 1 UNITS SC (18:05)
[2025-08-15] MEDS: LIPITOR 40 MG PO (18:06)
[2025-08-15] MEDS: MELATONIN 3 MG PO (21:42)
[2025-08-15] MEDS: LANTUS 0.3 UNITS SC (21:42)
[2025-08-15 21:45] LABS: Glucose - Point of Care 161 mg/dl (70-99)
[2025-08-16] VITALS (7 sets, daily range): BP systolic 116–146; BP diastolic 72–95; PULSE 109
[2025-08-16] MEDS: HEPARIN 5000 UNITS SC ×4 (00:05→23:13)
[2025-08-16 06:29] LABS: Blood Urea Nitrogen 46 mg/dl (9-20); Calcium 9.4 mg/dl (8.4-10.2); Carbon Dioxide 26 mmol/L (22-30); Chloride 102 mmol/L (98-107); Estimated Creatinine Clearance 50 ml/min; Glucose 176 mg/dl (70-99); Potassium 4.4 mmol/L (3.5-5.1); Sodium 138 mmol/L (135-145); eGFR 33.45
[2025-08-16 08:02] LABS: Glucose - Point of Care 201 mg/dl (70-99)
[2025-08-16] MEDS: PLAVIX 75 MG PO (08:42)
[2025-08-16] MEDS: MIRALAX 17 GRAMS PO (08:42)
[2025-08-16] MEDS: LOW STRENGTH ASPIRIN 81 MG PO (08:42)
[2025-08-16] MEDS: CARDIZEM CD 240 MG PO (08:42)
[2025-08-16] MEDS: NOVOLOG FLEXPEN 13 UNITS SC ×3 (08:43→18:06)
[2025-08-16] MEDS: NOVOLOG FLEXPEN-LOW RESISTANCE 2 UNITS SC (08:43)
[2025-08-16] MEDS: PROTONIX 40 MG PO (08:44)
--- NOTE | 2025-08-16 11:22 | W.PN.HOSP.TC ---
Today's Communication/Plan
-
Continue all lisinopril and hydrochlorothiazide. Continue with Cardizem. Follow blood pressure.
Await ultrasound of the abdomen.
Check creatinine in a.m.
Assessment / Plan
Assessment / Plan
IMPRESSION:
This is a 60-year-old with uncontrolled hypertension secondary to noncompliance with medications, hyperlipidemia, ieo-liapujx-aqbsjdfuy diabetes not currently on medical management presenting with acute onset of ataxia and subtle weakness of the
right side of his body. Ataxia appears to be related to the right side as well. Suspect possible cerebellar infarct however CT scan seems to show possible age-indeterminate lacunar infarct on the left. He has uncontrolled blood pressure today
230s over 130s in the ED.
PLAN:
Hypertensive emergency -patient with hypertensive emergency given elevated blood pressure with end organ changes and neurological symptom.
- Now off Cardene drip
- Initiated and uptitrated Cardizem on this admission.
- Initiated back on his lisinopril and uptitrated to his home dose of 20 mg - now on hold due to ESTER.
- Hydrochlorothiazide was reintroduced by cardiology -now on hold due to ESTER
- Blood pressure surprisingly has improved today just on Cardizem.
Abnormal creatinine on presentation-suspect chronic kidney disease with albuminuria.
ESTER-elevated creatinine noted since admission. Suspect secondary to hemodynamics, may be medication; patient also had a contrast for CTA on admission. Check bladder scan and renal ultrasound. Nephrology following. Creatinine further elevated
today but without any hyperkalemia or acidosis.
Acute ischemic cerebral infarct - out of window for TNK on admission
- Patient with right-sided weakness.
- CTA head and neck shows no significant stenosis.
- Unclear if this is related to his fully controlled hypertension, diabetes.
- Telemetry shows mostly sinus tach versus atrial tach but no atrial fibrillation. Ask cardiology to review. Echo pending.
- Continue to modify risk factors-initiated on scheduled antihypertensives. Started on insulin along with metformin.
- Also initiated on dual antiplatelet agent by neurology.
Continue with PT OT-acute rehab recommended-consult physiatry.
Also initiated on statins.
Diabetes -previously on Trulicity and oral agent metformin
-Sliding scale insulin for now
-A1c 9.0
- Restarted metformin. Also initiated on insulin to help with glycemic control in acute setting. Diabetic nurse practitioner following.
Abnormal EKG
Patient without any symptoms of angina. He has T wave changes now inversions compared to nonspecific changes in the past and anterior lateral leads. EKG shows persistent T wave abnormalities in the anterior and as well as lateral leads.. Unclear
if related to uncontrolled hypertension.
Troponins are negative.
Echo shows normal EF and moderate LVH. No wall motion abnormality.
Appreciate cardiology input-no interventions warranted. 2-week Holter monitor as an outpatient recommended.
Sinus tachycardia-TSH normal. Continue with Cardizem.
Left upper lobe lung abnormality-dedicated CT chest requested by pulmonary. CT chest shows multiple small pulmonary nodules seen bilaterally, none larger than 5 mm. Follow-up with pulmonary as outpatient.
Hypomagnesemia-replete
DVT progresses�SCDs for now
CODE STATUS�full code
Accepted to [facility]. Await optimization of blood pressure prior to discharge.
Anticipated Discharge: Within 24 hours
Subjective/Interval History
-
Date of Service: August 16, 2025
Slow improvement in the right-sided weakness. No new symptoms. Voices no specific complaints.
Objective Data
-
Labs:
Laboratory Results
08/16/25
05:52
Sodium 138
Potassium 4.4
Chloride 102
Carbon Dioxide 26
BUN 46 H
Creatinine 2.2 H
Glucose 176 H
Calcium 9.4
Vital Signs:
Vital Signs
Temp Pulse Resp BP Pulse Ox
98.1 F 107 16 126/87 100
08/16/25 07:50 08/16/25 07:50 08/16/25 03:00 08/16/25 07:50 08/16/25 07:50
I&O
08/15/25 08/16/25 08/17/25
06:59 06:59 06:59
Intake Total 1127
Balance 1127
Physical Exam
-
General: Comfortable
Respiratory: Non Labored Respirations; Negative Accessory Resp Muscle Use
Cardiac: Regular Rhythm and S1/S2
GI: Soft
Neuro: AO x 3; Negative No Motor Deficits (Rt hemiparesis)
Psych: Calm
Data Reviewed
-
Labs: Labs Reviewed by me
[2025-08-16 12:10] LABS: Glucose - Point of Care 166 mg/dl (70-99)
[2025-08-16] MEDS: NOVOLOG FLEXPEN-LOW RESISTANCE 1 UNITS SC (12:26)
[2025-08-16] MEDS: TYLENOL 650 MG PO ×2 (14:49→21:39)
--- NOTE | 2025-08-16 16:20 | W.PN.NEPH.PH ---
Today's Communication / Plan
-
follow labs
await renal US
Assessment/Plan
-
IMP:
ESTER with CKD [id number] cr 1.4-1.5 in 2022 -[facility]
Hypertensive emergency
Acute ischemic cerebral infarct
Diabetes -A1c9
Sinus tachycardia
Left upper lobe lung abnormality
Hypomagnesemia
Subnephrotic range proteinuria-1gm/gm of cr
HLD
Obesity
Plan:
A/w CVA and HTN emergency
ESTER-baseline 1.4-1.5, cr increasing to 2.2
UA relatively bland with albuminuria, u PCR 1gm/gm of cr
suspect possible diabetic nephropathy
pending renal US, bladder scan only 12cc
he had contrast exposure on 08/10
he was started on ACEI and HCTZ on 08/14, no hypotension noted
likely ESTER med effect, cont to hold ACEI, HCTZ
BP seem stable cont cardizem
could consider hydralzine vs bb if needed
pending check ARR, renal art duplex
avoid nephrotoxins, including NSAIDs
labs in am tomorrow
d/w pt in detail
-
-
Date of Service: August 16, 2025
CC / HPI / ROS
-
Chief Complaint:
ESTER, CKD
History of Present Illness:
cr up at 2.2
BP stable, k normal
Review of Systems:
no CP ros ob
weaker than normal after CVA
Labs
-
Labs:
WBC 9.8 10^3/uL (4.8-10.8) 08/12/25 04:02
RBC 4.78 10^6/uL (4.70-6.10) 08/12/25 04:02
Hgb 15.3 g/dL (13.0-18.0) 08/12/25 04:02
Hct 42.7 % (39.0-52.0) 08/12/25 04:02
Plt Count 245 10^3/uL (130-400) 08/12/25 04:02
Sodium 138 mmol/L (135-145) 08/16/25 05:52
Potassium 4.4 mmol/L (3.5-5.1) 08/16/25 05:52
Chloride 102 mmol/L (98-107) 08/16/25 05:52
Carbon Dioxide 26 mmol/L (22-30) 08/16/25 05:52
BUN 46 mg/dl (9-20) H 08/16/25 05:52
Creatinine 2.2 mg/dL (0.7-1.3) H 08/16/25 05:52
eGFR 33.45 08/16/25 05:52
Glucose 176 mg/dl (70-99) H 08/16/25 05:52
Calcium 9.4 mg/dl (8.4-10.2) 08/16/25 05:52
Albumin 4.4 g/dl (3.5-5.0) 08/10/25 20:04
Physical Exam
-
Vital Signs:
Vital Signs
Temp Pulse Resp BP Pulse Ox
97.6 F 112 18 146/95 100
08/16/25 15:15 08/16/25 15:15 08/16/25 15:15 08/16/25 15:15 08/16/25 15:15
Cardiovascular:: Regular rate and rhythm
Respiratory:: Bilateral: CTA
Lung Excursion:: Normal
Abdomen:: Nontender and Soft
Extremity Edema:: None: Bilateral:
Lu Catheter: No
[2025-08-16 16:56] LABS: Glucose - Point of Care 128 mg/dl (70-99)
[2025-08-16] MEDS: LIPITOR 40 MG PO (18:05)
[2025-08-16] MEDS: NOVOLOG FLEXPEN-LOW RESISTANCE SC (18:06)
[2025-08-16 21:33] LABS: Glucose - Point of Care 147 mg/dl (70-99)
[2025-08-16] MEDS: MELATONIN 3 MG PO (21:37)
[2025-08-16] MEDS: LANTUS 0.3 UNITS SC (21:37)
[2025-08-17] VITALS (7 sets, daily range): BP systolic 138–163; BP diastolic 86–114; PULSE 116; O2SAT 97
[2025-08-17] MEDS: TYLENOL 650 MG PO (01:54)
--- NOTE | 2025-08-17 07:38 | PN.DE.MGMTRT ---
Insulin Management
- -
08/17/2025: Diabetes Management Follow up
Patient admitted 08/10 with c/o dizziness, found to have hypertensive crisis, BP as high as 233/135, CVA. PMH HTN, HLD, diabetes, GERD. Was taking no diabetes meds for 1 1/2 years due to no insurance. States about 5 years ago had an A1C of 12%,
was on Trulicity and metformin and A1C was down to 7%. Lost insurance about 1 1/2 years ago and stopped all medications. Patient has R sided weakness.
Discussed with patient importance of glucose control and that insulin will be required at this time. A1C on admission 9%, cr 1.5, eGFR 52.97.
Patient is A/A/O, sitting up in chair, offers no complaints, able to discuss diabetes care. and son at bedside.
States he has been approved for [facility] but was told he could not go today due to rising Cr. Creatinine is up ti 2.1 today
HS glucose was 147, Received 30 units Lantus @ HS, Fasting glucose 165 V, 186 POC today.
08/16 Premeal range 128 to 201, Will make no changes to current regimen: Lantus 30 units @ HS, AC NovoLog 13 units with low corrective insulin AC.
Diabetes Nurse Educator instructed patient on monitor and insulin administration. Due to cost recommended Reli-On meter temporarily (patient is applying for disability/medicaid which should cover meter and insulin).
Discussed with Nurse. Will cont to follow
Diabetes History
- -
Type of Diabetes: 2 requiring insulin
Pre-Admission Diabetes Regimen
Lab Results
Hemoglobin A1c 9.0 % (4.0-5.6) H 08/11/25 04:40
Insulin Pump Settings
IP Diabetes Regimen
08/16/25 08/16/25 08/16/25
08:01 12:08 16:55
POC Glucose 201 H 166 H 128 H
08/16/25
21:32
POC Glucose 147 H
Patient Education
[2025-08-17 08:25] LABS: Glucose - Point of Care 186 mg/dl (70-99)
[2025-08-17 08:27] LABS: Blood Urea Nitrogen 49 mg/dl (9-20); Calcium 9.4 mg/dl (8.4-10.2); Carbon Dioxide 28 mmol/L (22-30); Chloride 101 mmol/L (98-107); Estimated Creatinine Clearance 52 ml/min; Glucose 165 mg/dl (70-99); Potassium 4.3 mmol/L (3.5-5.1); Sodium 137 mmol/L (135-145); eGFR 35.37
--- NOTE | 2025-08-17 08:55 | W.PN.HOSP.TC ---
Today's Communication/Plan
-
see bold
Assessment / Plan
Assessment / Plan
HPI: 60-year-old with uncontrolled hypertension secondary to noncompliance with medications, hyperlipidemia, [id number] diabetes not currently on medical management presenting with acute onset of ataxia and subtle weakness of the right
side of his body. Ataxia appears to be related to the right side as well. Suspect possible cerebellar infarct however CT scan seems to show possible age-indeterminate lacunar infarct on the left. He has uncontrolled blood pressure today 230s over
130s in the ED.
Assessment/plan:
Hypertensive emergency -patient with hypertensive emergency given elevated blood pressure with end organ changes and neurological symptom.
- Now off Cardene drip
- Initiated and uptitrated Cardizem on this admission.
- Holding lisinopril and hydrochlorothiazide secondary to ESTER
- Blood pressure surprisingly has improved just on Cardizem
- Follow-up renal artery duplex, and aldosterone/renin ratio sent out on 08/16
ESTER
- Appreciate nephrology input, due to contrast and LORRI inhibitor
- Hold hydrochlorothiazide, lisinopril, trend BMP
Acute ischemic cerebral infarct - out of window for TNK on admission
- Patient with right-sided weakness.
- CTA head and neck shows no significant stenosis.
- Unclear if this is related to his fully controlled hypertension, diabetes.
- Telemetry shows mostly sinus tach versus atrial tach but no atrial fibrillation. Ask cardiology to review. Echo pending.
- Continue to modify risk factors-initiated on scheduled antihypertensives. Started on insulin along with metformin.
- Also initiated on statin and dual antiplatelet agent by neurology.
- Continue with PT OT-acute rehab recommended-consulted physiatry.
Diabetes -previously on Trulicity and oral agent metformin
-A1c 9.0
-Restarted metformin. Also initiated on insulin to help with glycemic control in acute setting. Diabetic nurse practitioner following.
Abnormal EKG
Patient without any symptoms of angina. He has T wave changes now inversions compared to nonspecific changes in the past and anterior lateral leads. EKG shows persistent T wave abnormalities in the anterior and as well as lateral leads. Unclear
if related to uncontrolled hypertension. Troponins are negative.
Echo shows normal EF and moderate LVH. No wall motion abnormality.
Appreciate cardiology input-no interventions warranted. 2-week Holter monitor as an outpatient recommended.
Sinus tachycardia-TSH normal. Continue with Cardizem.
Left upper lobe lung abnormality-dedicated CT chest requested by pulmonary. CT chest shows multiple small pulmonary nodules seen bilaterally, none larger than 5 mm. Follow-up with pulmonary as outpatient.
Hypomagnesemia-repleted, recheck am Mg
DVT progresses�SC heparin
CODE STATUS�full code
Dispo - accepted to [facility]
Total time spent to see the patient on the floor, examine the patient, review data and lab results, discuss treatment plan with patient, nursing staff around 50 minutes.
Physical Exam
General: No acute distress
HEENT: Normocephalic, Atraumatic, EOMI, MMM
Respiratory: Clear to Auscultation bilaterally
Cardiac: Normal S1/S2, Regular Rate and Rhythm
GI: Soft, Nontender, Nondistended, Normal Bowel Sounds
Extremities: No Clubbing, Cyanosis, or Edema
Neuro: Minimal right-sided weakness noted
Psych: Calm, Cooperative
Derm: No Visible lesions
Anticipated Discharge: 24 - 48 hours
Subjective/Interval History
-
Date of Service: August 17, 2025
Patient reports right-sided weakness, same as admission. Denies chest pain, denies shortness of breath. No fever, no vomiting.
Objective Data
-
Labs:
Laboratory Results
08/17/25
07:21
Sodium 137
Potassium 4.3
Chloride 101
Carbon Dioxide 28
BUN 49 H
Creatinine 2.1 H
Glucose 165 H
Calcium 9.4
Vital Signs:
Vital Signs
Temp Pulse Resp BP Pulse Ox
98.1 F 104 20 153/94 92
08/17/25 08:25 08/17/25 08:25 08/17/25 08:25 08/17/25 08:25 08/17/25 08:25
[2025-08-17] MEDS: NOVOLOG FLEXPEN-LOW RESISTANCE 300 UNITS SC (09:41)
[2025-08-17] MEDS: NOVOLOG FLEXPEN 13 UNITS SC ×2 (09:42→17:52)
[2025-08-17] MEDS: MIRALAX 17 GRAMS PO (09:43)
[2025-08-17] MEDS: PROTONIX 40 MG PO (09:43)
[2025-08-17] MEDS: LOW STRENGTH ASPIRIN 81 MG PO (09:43)
[2025-08-17] MEDS: PLAVIX 75 MG PO (09:43)
[2025-08-17] MEDS: CARDIZEM CD 240 MG PO (09:44)
[2025-08-17] MEDS: HEPARIN 5000 UNITS SC ×3 (09:45→23:10)
[2025-08-17 12:28] LABS: Glucose - Point of Care 198 mg/dl (70-99)
[2025-08-17] MEDS: NOVOLOG FLEXPEN SC (13:17)
[2025-08-17] MEDS: NOVOLOG FLEXPEN-LOW RESISTANCE 1 UNITS SC ×2 (13:20→17:52)
--- NOTE | 2025-08-17 14:37 | W.PN.NEPH.PH ---
Today's Communication / Plan
-
Follow BMP
Assessment/Plan
-
IMP:
ESTER with CKD [id number] cr 1.4-1.5 in 2022 -[facility]
Hypertensive emergency
Acute ischemic cerebral infarct
Diabetes -A1c9
Sinus tachycardia
Left upper lobe lung abnormality
Hypomagnesemia
Subnephrotic range proteinuria-1gm/gm of cr
HLD
Obesity
Plan:
Renal artery duplex follow BMP
Hold lisinopril and diuretics for now
ESTER likely due to contrast and then LORRI inhibitor
Follow BMP
-
-
Date of Service: August 17, 2025
CC / HPI / ROS
-
Chief Complaint:
ESTER, CKD
History of Present Illness:
ESTER/Cr stable 2.1
BP stable
k normal
Review of Systems:
no CP/SOB
Labs
-
Labs:
WBC 9.8 10^3/uL (4.8-10.8) 08/12/25 04:02
RBC 4.78 10^6/uL (4.70-6.10) 08/12/25 04:02
Hgb 15.3 g/dL (13.0-18.0) 08/12/25 04:02
Hct 42.7 % (39.0-52.0) 08/12/25 04:02
Plt Count 245 10^3/uL (130-400) 08/12/25 04:02
Sodium 137 mmol/L (135-145) 08/17/25 07:21
Potassium 4.3 mmol/L (3.5-5.1) 08/17/25 07:21
Chloride 101 mmol/L (98-107) 08/17/25 07:21
Carbon Dioxide 28 mmol/L (22-30) 08/17/25 07:21
BUN 49 mg/dl (9-20) H 08/17/25 07:21
Creatinine 2.1 mg/dL (0.7-1.3) H 08/17/25 07:21
eGFR 35.37 08/17/25 07:21
Glucose 165 mg/dl (70-99) H 08/17/25 07:21
Calcium 9.4 mg/dl (8.4-10.2) 08/17/25 07:21
Albumin 4.4 g/dl (3.5-5.0) 08/10/25 20:04
Physical Exam
-
Vital Signs:
Vital Signs
Temp Pulse Resp BP Pulse Ox
97.7 F 93 20 163/88 98
08/17/25 11:43 08/17/25 11:43 08/17/25 11:43 08/17/25 11:43 08/17/25 11:43
Cardiovascular:: Regular rate and rhythm
Respiratory:: Bilateral: Coarse
Lung Excursion:: Normal
Abdomen:: Nontender and Soft
Bowel Sounds:: Normal
Extremity Edema:: None: Bilateral:
--- NOTE | 2025-08-17 16:24 | CM ---
CM reviewed chart, reviewed with Hospitalist.
Plan for [facility] once stable.
Updates to [facility] at [facility].
[facility] application cleared.
CM will continue to follow for all d/c planning needs.
Plan; [facility] once stable
[facility]
Report: [phone]
[2025-08-17 16:32] LABS: Glucose - Point of Care 192 mg/dl (70-99)
--- NOTE | 2025-08-17 16:50 | PTCARENOTE ---
Assumed care of pt from nurse. Pt denies pain. Pt NIH 4. Pt went for renal US, results pending. Pt call dejesus is within reach, pt rings yvon. will cont to monitor.
[2025-08-17] MEDS: LIPITOR 40 MG PO (17:38)
[2025-08-17] MEDS: MELATONIN 3 MG PO (21:08)
[2025-08-17] MEDS: LANTUS 0.3 UNITS SC (21:08)
[2025-08-17 21:10] LABS: Glucose - Point of Care 171 mg/dl (70-99)
[2025-08-18] VITALS (7 sets, daily range): BP systolic 141–156; BP diastolic 80–105; PULSE 111
[2025-08-18] MEDS: COLACE 100 MG PO (05:42)
[2025-08-18 07:18] LABS: Blood Urea Nitrogen 41 mg/dl (9-20); Calcium 9.6 mg/dl (8.4-10.2); Carbon Dioxide 25 mmol/L (22-30); Chloride 103 mmol/L (98-107); Estimated Creatinine Clearance 65 ml/min; Glucose 170 mg/dl (70-99); Potassium 4.4 mmol/L (3.5-5.1); Sodium 137 mmol/L (135-145); eGFR 45.58
[2025-08-18 08:09] LABS: Glucose - Point of Care 203 mg/dl (70-99)
--- NOTE | 2025-08-18 08:21 | PN.DE.MGMTRT ---
Insulin Management
- -
08/18/2025: Diabetes Management Follow up
Patient admitted 08/10 with c/o dizziness, found to have hypertensive crisis, BP as high as 233/135, CVA. PMH HTN, HLD, diabetes, GERD. Was taking no diabetes meds for 1 1/2 years due to no insurance. States about 5 years ago had an A1C of 12%,
was on Trulicity and metformin and A1C was down to 7%. Lost insurance about 1 1/2 years ago and stopped all medications. Patient has R sided weakness.
Discussed with patient importance of glucose control and that insulin will be required at this time. A1C on admission 9%, cr 1.5, eGFR 52.97.
Patient is A/A/O, sitting up in chair, offers no complaints, able to discuss diabetes care. and son at bedside.
States he has been approved for [facility].
Received 13 units novolog AC yesterday, pre meal glucose 186 to 198. Received 30 units Lantus @ HS, Fasting glucose 170.
Will increase HS lantus to 33 units and AC novolog to 15 units with low corrective insulin.
Diabetes Nurse Educator instructed patient on monitor and insulin administration. Due to cost recommended Reli-On meter temporarily (patient is applying for disability/medicaid which should cover meter and insulin).
Discussed with Nurse. Will cont to follow
Diabetes History
- -
Type of Diabetes: 2 requiring insulin
Pre-Admission Diabetes Regimen
08/17/25 08/18/25
07:21 06:38
Creatinine 2.1 H 1.7 H
Lab Results
Hemoglobin A1c 9.0 % (4.0-5.6) H 08/11/25 04:40
Insulin Pump Settings
IP Diabetes Regimen
08/17/25 08/17/25 08/17/25
07:21 08:24 12:27
Glucose 165 H
POC Glucose 186 H 198 H
08/17/25 08/17/25 08/18/25
16:31 21:09 06:38
Glucose 170 H
POC Glucose 192 H 171 H
08/18/25
08:08
Glucose
POC Glucose 203 H
Meal type: Lunch
Meal type: Breakfast
Amount consumed: 100%
Amount consumed: 100%
Patient Education
[2025-08-18] MEDS: NOVOLOG FLEXPEN-LOW RESISTANCE 2 UNITS SC ×2 (08:30→11:57)
[2025-08-18] MEDS: NOVOLOG FLEXPEN 15 UNITS SC ×3 (08:31→17:56)
[2025-08-18] MEDS: PLAVIX 75 MG PO (08:33)
[2025-08-18] MEDS: PROTONIX 40 MG PO (08:34)
[2025-08-18] MEDS: CARDIZEM CD 240 MG PO (08:34)
[2025-08-18] MEDS: LOW STRENGTH ASPIRIN 81 MG PO (08:34)
[2025-08-18] MEDS: MIRALAX 17 GRAMS PO (08:34)
[2025-08-18] MEDS: HEPARIN 5000 UNITS SC ×2 (08:35→16:08)
[2025-08-18] MEDS: NOVOLOG FLEXPEN SC (09:00)
--- NOTE | 2025-08-18 09:31 | W.PN.HOSP.TC ---
Today's Communication/Plan
-
Discharged to [facility] tomorrow
Assessment / Plan
Assessment / Plan
HPI: 60-year-old with uncontrolled hypertension secondary to noncompliance with medications, hyperlipidemia, uzp-pwxnoqx-[id number] diabetes not currently on medical management presenting with acute onset of ataxia and subtle weakness of the right
side of his body. Ataxia appears to be related to the right side as well. Suspect possible cerebellar infarct however CT scan seems to show possible age-indeterminate lacunar infarct on the left. He has uncontrolled blood pressure today 230s over
130s in the ED.
Assessment/plan:
Hypertensive emergency -patient with hypertensive emergency given elevated blood pressure with end organ changes and neurological symptom.
- Now off Cardene drip
- Initiated and uptitrated Cardizem on this admission.
- Holding lisinopril and hydrochlorothiazide secondary to ESTER
- Nephrology increased diltiazem from 240 mg daily to 180 mg twice a day
- Renal artery duplex negative for renal artery stenosis, follow-up aldosterone/renin ratio sent out on 08/16
ESTER
- Appreciate nephrology input, due to contrast and LORRI inhibitor
- Hold hydrochlorothiazide, lisinopril, trend BMP
Acute ischemic cerebral infarct - out of window for TNK on admission
- Patient with right-sided weakness.
- CTA head and neck shows no significant stenosis.
- Unclear if this is related to his fully controlled hypertension, diabetes.
- Telemetry shows mostly sinus tach versus atrial tach but no atrial fibrillation. Ask cardiology to review. Echo pending.
- Continue to modify risk factors-initiated on scheduled antihypertensives. Started on insulin along with metformin.
- Started on plavix 75 mg daily x 21 days thru 08/31, aspirin 81 mg daily, atorvastatin 40 mg Qpm
- Continue with PT OT-acute rehab recommended-consulted physiatry.
Diabetes -previously on Trulicity and oral agent metformin
-A1c 9.0
-Restarted metformin. Also initiated on insulin to help with glycemic control in acute setting. Diabetic nurse practitioner following.
Abnormal EKG
Patient without any symptoms of angina. He has T wave changes now inversions compared to nonspecific changes in the past and anterior lateral leads. EKG shows persistent T wave abnormalities in the anterior and as well as lateral leads. Unclear
if related to uncontrolled hypertension. Troponins are negative.
Echo shows normal EF and moderate LVH. No wall motion abnormality.
Appreciate cardiology input-no interventions warranted. 2-week Holter monitor as an outpatient recommended.
Sinus tachycardia-TSH normal. Continue with Cardizem.
Left upper lobe lung abnormality-dedicated CT chest requested by pulmonary. CT chest shows multiple small pulmonary nodules seen bilaterally, none larger than 5 mm. Follow-up with pulmonary as outpatient.
Hypomagnesemia-repleted, recheck am Mg
DVT progresses�SC heparin
CODE STATUS�full code
Dispo - accepted to [facility]
Total time spent to see the patient on the floor, examine the patient, review data and lab results, discuss treatment plan with patient, nursing staff around 42 minutes.
Physical Exam
General: No acute distress
HEENT: Normocephalic, Atraumatic, EOMI, MMM
Respiratory: Clear to Auscultation bilaterally
Cardiac: Normal S1/S2, Regular Rate and Rhythm
GI: Soft, Nontender, Nondistended, Normal Bowel Sounds
Extremities: No Clubbing, Cyanosis, or Edema
Neuro: Minimal right-sided weakness noted
Psych: Calm, Cooperative
Derm: No Visible lesions
Anticipated Discharge: Within 24 hours
Subjective/Interval History
-
Date of Service: August 18, 2025
Patient continues to have right-sided weakness and ataxia. Denies chest pain, denies shortness of breath. No fever, no vomiting.
Objective Data
-
Labs:
Laboratory Results
08/18/25
06:38
Sodium 137
Potassium 4.4
Chloride 103
Carbon Dioxide 25
BUN 41 H
Creatinine 1.7 H
Glucose 170 H
Calcium 9.6
Vital Signs:
Vital Signs
Temp Pulse Resp BP Pulse Ox
97.6 F 105 18 141/105 97
08/18/25 07:00 08/18/25 08:34 08/18/25 07:00 08/18/25 08:34 08/18/25 07:00
I&O
08/17/25 08/18/25 08/19/25
06:59 06:59 06:59
Intake Total 1500 / 1500
Output Total 350 / 350
Balance 1150 / 1150
--- NOTE | 2025-08-18 11:05 | CM ---
Chart reviewed. Plan is for [facility] at d/c
Per hospitalist, patient can d/c to [facility] today if there's a bed available
Spoke marin/ [facility] liaison, there are no beds today. Will give CM a call to determine if there is a potential bed tomorrow
[facility]
Report: [phone]

Plan: D/c to [facility]. Hopefully tomorrow, awaiting confirmation about a bed tomorrow
[2025-08-18 11:53] LABS: Glucose - Point of Care 223 mg/dl (70-99)
--- NOTE | 2025-08-18 14:20 | W.PN.NEPH.PH ---
Today's Communication / Plan
-
increase CCB
Assessment/Plan
-
IMP:
ESTER with CKD [id number] cr 1.4-1.5 in 2022 -ECW
Hypertensive emergency
Acute ischemic cerebral infarct
Diabetes -A1c9
Sinus tachycardia
Left upper lobe lung abnormality
Hypomagnesemia
Subnephrotic range proteinuria-1gm/gm of cr
HLD
Obesity
Plan:
Renal artery duplex neg
Hold lisinopril and diuretics for now
ESTER likely due to contrast and then LORRI inhibitor
Follow BMP
increase CCB
-
-
Date of Service: August 18, 2025
CC / HPI / ROS
-
Chief Complaint:
ESTER, CKD
History of Present Illness:
ESTER/Cr stable 1.7
BP stable high
k normal
Review of Systems:
no CP/SOB
Labs
-
Labs:
WBC 9.8 10^3/uL (4.8-10.8) 08/12/25 04:02
RBC 4.78 10^6/uL (4.70-6.10) 08/12/25 04:02
Hgb 15.3 g/dL (13.0-18.0) 08/12/25 04:02
Hct 42.7 % (39.0-52.0) 08/12/25 04:02
Plt Count 245 10^3/uL (130-400) 08/12/25 04:02
Sodium 137 mmol/L (135-145) 08/18/25 06:38
Potassium 4.4 mmol/L (3.5-5.1) 08/18/25 06:38
Chloride 103 mmol/L (98-107) 08/18/25 06:38
Carbon Dioxide 25 mmol/L (22-30) 08/18/25 06:38
BUN 41 mg/dl (9-20) H 08/18/25 06:38
Creatinine 1.7 mg/dL (0.7-1.3) H 08/18/25 06:38
eGFR 45.58 08/18/25 06:38
Glucose 170 mg/dl (70-99) H 08/18/25 06:38
Calcium 9.6 mg/dl (8.4-10.2) 08/18/25 06:38
Albumin 4.4 g/dl (3.5-5.0) 08/10/25 20:04
Physical Exam
-
Vital Signs:
Vital Signs
Temp Pulse Resp BP Pulse Ox
98 F 99 12 150/98 96
08/18/25 11:35 08/18/25 11:35 08/18/25 11:35 08/18/25 11:35 08/18/25 11:35
Cardiovascular:: Regular rate and rhythm
Respiratory:: Bilateral: Coarse
Lung Excursion:: Normal
Abdomen:: Nontender and Soft
Bowel Sounds:: Normal
Extremity Edema:: None: Bilateral:
[2025-08-18] MEDS: TYLENOL 650 MG PO ×2 (16:07→20:11)
[2025-08-18] MEDS: LIPITOR 40 MG PO (16:08)
[2025-08-18 17:41] LABS: Glucose - Point of Care 122 mg/dl (70-99)
[2025-08-18] MEDS: NOVOLOG FLEXPEN-LOW RESISTANCE SC (17:46)
[2025-08-18] MEDS: MELATONIN PO (20:05)
[2025-08-18] MEDS: LIDOCAINE 4% PATCH 1 PATCH TOPICAL (20:33)
[2025-08-18 21:38] LABS: Glucose - Point of Care 167 mg/dl (70-99)
[2025-08-18] MEDS: LANTUS 0.33 UNITS SC (22:30)
[2025-08-19] MEDS: HEPARIN 5000 UNITS SC ×2 (00:22→07:45)
[2025-08-19 03:15] VITALS: BP 162/96
[2025-08-19 07:00] VITALS: BP 139/70
[2025-08-19] MEDS: REMOVE LIDOCAINE PATCH 1 PATCH REMOVE (07:45)
[2025-08-19] MEDS: MIRALAX 17 GRAMS PO (07:45)
[2025-08-19] MEDS: CARDIZEM CD 180 MG PO (07:45)
[2025-08-19] MEDS: LOW STRENGTH ASPIRIN 81 MG PO (07:51)
[2025-08-19] MEDS: PLAVIX 75 MG PO (07:51)
[2025-08-19] MEDS: PROTONIX 40 MG PO (07:51)
[2025-08-19] MEDS: NOVOLOG FLEXPEN-LOW RESISTANCE 1 UNITS SC ×2 (08:00→12:07)
[2025-08-19] MEDS: NOVOLOG FLEXPEN 15 UNITS SC ×2 (08:00→16:55)
[2025-08-19 08:02] LABS: Glucose - Point of Care 180 mg/dl (70-99)
--- NOTE | 2025-08-19 08:16 | PN.DE.MGMTRT ---
Insulin Management
- -
08/19/2025: Diabetes Management Follow up
Patient admitted 08/10 with c/o dizziness, found to have hypertensive crisis, BP as high as 233/135, CVA. PMH HTN, HLD, diabetes, GERD. Was taking no diabetes meds for 1 1/2 years due to no insurance. States about 5 years ago had an A1C of 12%,
was on Trulicity and metformin and A1C was down to 7%. Lost insurance about 1 1/2 years ago and stopped all medications. Patient has R sided weakness.
Discussed with patient importance of glucose control and that insulin will be required at this time. A1C on admission 9%, cr 1.5, eGFR 52.97.
Patient is A/A/O, sitting up in chair, offers no complaints, able to discuss diabetes care. Family at bedside.
States he has been approved for [facility].
Novolog increased to 15 units AC, glucose improved pre dinner to 122. Received 33 units lantus @ HS. Fasting glucose today 180.
Will increase HS lantus to 35 units and AC novolog to 18 units with breakfast and lunch and 15 units with dinner with low corrective insulin.
Diabetes Nurse Educator instructed patient on monitor and insulin administration. Due to cost recommended Reli-[employer] meter temporarily (patient is applying for disability/medicaid which should cover meter and insulin).
Discussed with Nurse. Will cont to follow
Diabetes History
- -
Type of Diabetes: 2 requiring insulin
Pre-Admission Diabetes Regimen
Lab Results
Hemoglobin A1c 9.0 % (4.0-5.6) H 08/11/25 04:40
Insulin Pump Settings
IP Diabetes Regimen
08/18/25 08/18/25 08/18/25
11:53 17:39 21:31
POC Glucose 223 H 122 H 167 H
08/19/25
07:59
POC Glucose 180 H
Meal type: Dinner
Meal type: Lunch
Meal type: Breakfast
Amount consumed: 100%
Amount consumed: 100%
Amount consumed: 100%
Patient Education
[2025-08-19 08:30] LABS: Blood Urea Nitrogen 40 mg/dl (9-20); Calcium 9.5 mg/dl (8.4-10.2); Carbon Dioxide 24 mmol/L (22-30); Chloride 102 mmol/L (98-107); Estimated Creatinine Clearance 61 ml/min; Glucose 172 mg/dl (70-99); Magnesium 2.0 mg/dl (1.6-2.3); Potassium 4.6 mmol/L (3.5-5.1); Sodium 136 mmol/L (135-145); eGFR 42.56
--- NOTE | 2025-08-19 08:39 | W.PN.HOSP.TC ---
Today's Communication/Plan
-
Medically stable for discharge to [facility] today, recommend taking manual blood pressures and titrating hydralazine
Assessment / Plan
Assessment / Plan
HPI: 60-year-old with uncontrolled hypertension secondary to noncompliance with medications, hyperlipidemia, [id number] diabetes not currently on medical management presenting with acute onset of ataxia and subtle weakness of the right
side of his body. Ataxia appears to be related to the right side as well. Suspect possible cerebellar infarct however CT scan seems to show possible age-indeterminate lacunar infarct on the left. He has uncontrolled blood pressure today 230s over
130s in the ED.
Assessment/plan:
Hypertensive emergency -patient with hypertensive emergency given elevated blood pressure with end organ changes and neurological symptom.
- Now off Cardene drip
- Initiated and uptitrated oral Cardizem on this admission.
- Holding lisinopril and hydrochlorothiazide secondary to ESTER
- Nephrology increased diltiazem from 240 mg daily to 180 mg twice a day on 08/18, and recommended starting hydralazine 25 mg twice a day 08/19
- Patient's blood pressure continues to be elevated today, 08/19, suspect secondary to anxiety as he has been eager and anxious to go to [facility]
- Renal artery duplex negative for renal artery stenosis, follow-up aldosterone/renin ratio sent out on 08/16
- Medically stable for discharge to [facility] today, recommend taking manual blood pressures and titrating hydralazine
SETER
- Appreciate nephrology input, due to contrast and LORRI inhibitor
- Hold hydrochlorothiazide, lisinopril, trend BMP
Acute ischemic cerebral infarct - out of window for TNK on admission
- Patient with right-sided weakness.
- CTA head and neck shows no significant stenosis.
- Unclear if this is related to his fully controlled hypertension, diabetes.
- Telemetry shows mostly sinus tach versus atrial tach but no atrial fibrillation. Ask cardiology to review. Echo pending.
- Continue to modify risk factors-initiated on scheduled antihypertensives. Started on insulin along with metformin.
- Started on plavix 75 mg daily x 21 days thru 08/31, aspirin 81 mg daily, atorvastatin 40 mg Qpm
- Continue with PT OT-acute rehab recommended-consulted physiatry.
Diabetes -previously on Trulicity and oral agent metformin
-A1c 9.0
-Restarted metformin. Also initiated on insulin to help with glycemic control in acute setting. Diabetic nurse practitioner following.
Abnormal EKG
Patient without any symptoms of angina. He has T wave changes now inversions compared to nonspecific changes in the past and anterior lateral leads. EKG shows persistent T wave abnormalities in the anterior and as well as lateral leads. Unclear
if related to uncontrolled hypertension. Troponins are negative.
Echo shows normal EF and moderate LVH. No wall motion abnormality.
Appreciate cardiology input-no interventions warranted. 2-week Holter monitor as an outpatient recommended.
Sinus tachycardia-TSH normal. Continue with Cardizem.
Left upper lobe lung abnormality-dedicated CT chest requested by pulmonary. CT chest shows multiple small pulmonary nodules seen bilaterally, none larger than 5 mm. Follow-up with pulmonary as outpatient.
Hypomagnesemia-resolved
Right hip arthritis-continue lidocaine patch
DVT progresses�SC lovenox
CODE STATUS�full code
Dispo - accepted to [facility]
Physical Exam
General: No acute distress
HEENT: Normocephalic, Atraumatic, EOMI, MMM
Respiratory: Clear to Auscultation bilaterally
Cardiac: Normal S1/S2, Regular Rate and Rhythm
GI: Soft, Nontender, Nondistended, Normal Bowel Sounds
Extremities: No Clubbing, Cyanosis, or Edema
Neuro: Minimal right-sided weakness noted
Psych: Calm, Cooperative
Derm: No Visible lesions
Anticipated Discharge: Today
Subjective/Interval History
-
Date of Service: August 19, 2025
Patient continues to have right sided weakness, now he is reporting hand arthritic pain. He also has right hip arthritis, received a lidocaine patch last night. Denies chest pain, denies shortness of breath. No fever, no vomiting.
Objective Data
-
Labs:
Laboratory Results
08/19/25
07:22
Sodium 136
Potassium 4.6
Chloride 102
Carbon Dioxide 24
BUN 40 H
Creatinine 1.8 H
Glucose 172 H
Calcium 9.5
Vital Signs:
Vital Signs
Temp Pulse Resp BP Pulse Ox
98.1 F 102 17 139/70 95
08/19/25 07:00 08/19/25 07:00 08/19/25 07:00 08/19/25 07:00 08/19/25 07:00
I&O
08/18/25 08/19/25 08/20/25
06:59 06:59 06:59
Intake Total 1500 / 1500 1200 / 1200
Output Total 350 / 350 400 / 400
Balance 1150 / 1150 800 / 800
[2025-08-19 11:49] VITALS: BP 181/101
[2025-08-19 12:00] LABS: Glucose - Point of Care 182 mg/dl (70-99)
[2025-08-19] MEDS: NOVOLOG FLEXPEN 18 UNITS SC (12:07)
--- NOTE | 2025-08-19 12:08 | CM ---
CM reviewed chart, patient seen bedside with son.
[facility] able to accept patient today, bed available 4:00 p.m.
Update to Nurse/Hospitalist.
CM will continue to follow for all discharge planning needs.
Plan; [facility], 4:00 p.m.
[facility]
Report: [phone]
[2025-08-19 12:23] LABS: Aldosterone/Renin Activ Ratio 0.3 ratio (<=25.0); Renin Activity Results 29.4 ng/mL/hr
[2025-08-19 13:00] VITALS: BP 155/88
[2025-08-19 15:00] VITALS: BP 157/93
[2025-08-19] MEDS: APRESOLINE 25 MG PO (15:33)
--- NOTE | 2025-08-19 15:55 | W.PN.NEPH.PH ---
Addendum entered and electronically signed by Lupe Clark MD 08/19/25 18:55:
also reviewed that if cr remains high after rehab he would need to f/u nephro under his insurance coverage
Original Note:
Today's Communication / Plan
-
add hydralazine
Assessment/Plan
-
IMP:
ESTER with CKD [id number] cr 1.4-1.5 in 2022 -ECW
Hypertensive emergency
Acute ischemic cerebral infarct
Diabetes -A1c9
Sinus tachycardia
Left upper lobe lung abnormality
Hypomagnesemia
Subnephrotic range proteinuria-1gm/gm of cr
HLD
Obesity
Plan:
Renal artery duplex neg
Hold lisinopril and diuretics for now
ESTER likely due to contrast and then LORRI inhibitor
cr stable at 1.8,cr may settle higher than baseline
add hydralazine for BP control, cotn high dose CCB
avoid nephrotoxins
d/w pt
ok for rehab
Follow BMP
-
-
Date of Service: August 19, 2025
CC / HPI / ROS
-
Chief Complaint:
ESTER, CKD
History of Present Illness:
ESTER/Cr stable 1.8
BP stable high
k normal
Review of Systems:
no CP/SOB
Labs
-
Labs:
WBC 9.8 10^3/uL (4.8-10.8) 08/12/25 04:02
RBC 4.78 10^6/uL (4.70-6.10) 08/12/25 04:02
Hgb 15.3 g/dL (13.0-18.0) 08/12/25 04:02
Hct 42.7 % (39.0-52.0) 08/12/25 04:02
Plt Count 245 10^3/uL (130-400) 08/12/25 04:02
Sodium 136 mmol/L (135-145) 08/19/25 07:22
Potassium 4.6 mmol/L (3.5-5.1) 08/19/25 07:22
Chloride 102 mmol/L (98-107) 08/19/25 07:22
Carbon Dioxide 24 mmol/L (22-30) 08/19/25 07:22
BUN 40 mg/dl (9-20) H 08/19/25 07:22
Creatinine 1.8 mg/dL (0.7-1.3) H 08/19/25 07:22
eGFR 42.56 08/19/25 07:22
Glucose 172 mg/dl (70-99) H 08/19/25 07:22
Calcium 9.5 mg/dl (8.4-10.2) 08/19/25 07:22
Albumin 4.4 g/dl (3.5-5.0) 08/10/25 20:04
Physical Exam
-
Vital Signs:
Vital Signs
Temp Pulse Resp BP Pulse Ox
98.1 F 94 17 155/88 97
08/19/25 11:49 08/19/25 13:00 08/19/25 11:49 08/19/25 13:00 08/19/25 13:00
Cardiovascular:: Regular rate and rhythm
Respiratory:: Bilateral: CTA
Lung Excursion:: Normal
Abdomen:: Nontender and Soft
Bowel Sounds:: Normal
Extremity Edema:: None: Bilateral:
Lu Catheter: No
[2025-08-19 16:53] LABS: Glucose - Point of Care 108 mg/dl (70-99)
[2025-08-19] MEDS: NOVOLOG FLEXPEN-LOW RESISTANCE SC (16:54)
== END 2025-08-19 17:46 | DRG 65 ==
LOC: 4 WEST ACU 00:13
PROVIDERS: Emergency Medicine; Internal Medicine; Nurse Practitioner Primary Care; Specialist; ADMITTING PHYSICIAN Internal Medicine; ATTENDING PHYSICIAN Family Medicine; CONSULT PHYSICIAN Internal Medicine; CONSULT PHYSICIAN Internal Medicine Cardiovascular Disease; CONSULT PHYSICIAN Physical Medicine & Rehabilitation; CONSULT PHYSICIAN Psychiatry & Neurology Neurology; EMERGENCY PHYSICIAN Emergency Medicine; FAMILY PHYSICIAN Physician Assistant Medical
DX: I63.9 Cerebral infarction, unspecified (principal); G81.91 Hemiplegia, unspecified affecting right dominant side; I16.1 Hypertensive emergency; N17.9 Acute kidney failure, unspecified; E11.22 Type 2 diabetes mellitus with diabetic chronic kidney disease; E11.40 Type 2 diabetes mellitus with diabetic neuropathy, unspecified; N18.31 Chronic kidney disease, stage 3a; E83.42 Hypomagnesemia; Z80.0 Family history of malignant neoplasm of digestive organs; E66.9 Obesity, unspecified; Z68.37 Body mass index [BMI] 37.0-37.9, adult; E78.00 Pure hypercholesterolemia, unspecified; I13.10 Hypertensive heart and chronic kidney disease without heart failure, with stage 1 through stage 4 chronic kidney disease, or unspecified chronic kidney disease; I44.0 Atrioventricular block, first degree; K21.9 Gastro-esophageal reflux disease without esophagitis; M21.371 Foot drop, right foot; R29.703 NIHSS score 3; Z56.0 Unemployment, unspecified; Z59.71 Insufficient health insurance coverage; Z79.899 Other long term (current) drug therapy; Z86.73 Personal history of transient ischemic attack (TIA), and cerebral infarction without residual deficits; Z91.141 Patient's other noncompliance with medication regimen due to financial hardship
CPT/HCPCS: 70496; 70498; 70551; 71045; 71250; 80048; 80053; 80061; 81003; 81015; 82010; 82088; 82570; 82805; 82962; 83036; 83605; 83721; 83735; 84156; 84244; 84443; 84484; 85025; 85027; 85610; 85652; 85730; 86803; 92610; 93005; 93306; 93975; 96374; 97110; 97112; 97116; 97129; 97163; 97167; 97530; 97535; 99291; Q9950; Q9967